=== PATIENT | male | born 1940 | race Hispanic/Latino ===

== ENCOUNTER 2021-09-16 21:55 | Inpatient (IN) | payer MEDICARE ==
[2021-09-16 22:45] LABS: Hemoglobin 15.7 g/dL (14.0-18.0); Mean Corpuscular HGB CONC 34.3 g/dL (32.0-36.0); Mean Corpuscular Hemoglobin 31.3 pg (27.0-31.0); Mean Corpuscular Volume 91.2 fL (78.0-98.0); Mean Platelet Volume 8.1 fL (7.4-10.4); Platelet Count 376 thou/uL (130-400); RBC Distribution Width 12.6 % (11.5-14.5); Red Blood Cell (RBC) Count 5.01 mill/uL (4.70-6.10); White Blood Cell (WBC) Count 27.7 thou/uL (4.8-10.8)
[2021-09-16 23:02] LABS: Band 10 % (5-11); MDiff Complete? YES; Monocytes 10 % (0-10); Neutrophil 80 % (42-75); Platelet Morphology Comment Appears Adequate; RBC Morphology Normal
[2021-09-16 23:12] LABS: Phosphorus 1.9 mg/dL (2.3-4.7)
[2021-09-16 23:20] LABS: ALT (SGPT) 188 U/L (8-55); AST (SGOT) 200 U/L (5-34); Albumin 3.2 g/dL (3.4-4.8); Alkaline Phosphatase 304 U/L (40-110); Anion Gap 22 mmol/L (10-20); BUN (Urea Nitrogen) 45 mg/dL (8.4-25.7); Bilirubin, Total 3.1 mg/dL (0.2-1.2); CK (CPK) 67 U/L (30-200); Calc. Creatinine Clearance 0 mL/min (70-130); Carbon Dioxide 14 mmol/L (23-31); Chloride 104 mmol/L (98-107); Globulin 4.2 g/dL (2.4-3.5); Glucose 361 mg/dL (83-110); Magnesium 1.8 mg/dL (1.6-2.6); Potassium 4.7 mmol/L (3.5-5.1); Protein, Total 7.4 g/dL (5.8-8.1); Sodium 135 mmol/L (136-145)
[2021-09-16 23:24] LABS: Bacteria/HPF 1+ HPF (None Seen); Bilirubin Negative (Negative); Blood, Urine 1+ (Negative); Clarity Turbid (Clear); Glucose, Urine (Dipstick) Greater than 1000 mg/dL (Negative); Ketone, Urine Negative (Negative); Leukocyte 500 Leu/uL (Negative); Nitrite Negative (Negative); Protein, Urine (Dipstick) 70 mg/dL (Neg-Trace); Specific Gravity, Urine 1.013 (1.002-1.036); Squamous Epithelial None Seen HPF (0-3); Urobilinogen 3 mg/dL (Less than 2); WBC/HPF Greater than 50 HPF (0-3); pH, Urine 5.5 (5.0-9.0)
[2021-09-16 23:26] LABS: SARS-CoV-2 NAA Rapid Test Not Detected (NotDetected)
[2021-09-16] MEDS ORDERED: Cefepime 2 GM VIAL ONE (23:42)
[2021-09-16] MEDS ORDERED: Vancomycin 1 GM/200 ML BAG ONE (23:52)
[2021-09-17 01:00] LABS: Lipase Greater than 16000 U/L (8-78)
[2021-09-17] MEDS ORDERED: Sodium Chloride 0.9% 1,000 ML IV SCH (01:30)
[2021-09-17 01:58] VITALS: BMI 21.4
[2021-09-17] MEDS ORDERED: Dextrose 5% in Water 1,000 ML IV PRN (02:33)
[2021-09-17 03:00] LABS: Lactic Acid 3.1 mmol/L (0.5-2.2)
[2021-09-17] MEDS: HumaLOG 300 UNITS/3 ML VIAL SC PRN (03:17)
[2021-09-17] MEDS ORDERED: Meperidine HCl/PF 25 MG/ML VIAL SLOW IVP PRN (06:49)
[2021-09-17 07:54] LABS: CRP (Inflammatory) 7.91 mg/dL (= or < 0.5); Cardiac Risk 4.6 (Less than 4.5)
[2021-09-17] MEDS ORDERED: Meropenem 1 GM in Sodium Chloride 0.9% 100 ML IVPB SCH ×2 (08:00→14:00)
[2021-09-17] MEDS ORDERED: FLU VACC QS2021-22(65YR UP)/PF 240 MCG/0.7 ML SYRINGE IM ONE (09:00)
[2021-09-17] MEDS: Sodium Chloride 0.9% 1,000 ML IV SCH ×3 (10:18→18:46)
[2021-09-17] MEDS: Lantus 1000 UNITS/10 ML VIAL SC SCH (10:19)
[2021-09-17] MEDS: Meropenem 500 MG in Sodium Chloride 0.9% 100 ML IVPB SCH (17:11)
[2021-09-17] MEDS: Dextrose 50% Abboject 50 ML SYRINGE SLOW IVP PRN (21:22)
[2021-09-18] MEDS: Lantus 1000 UNITS/10 ML VIAL SC SCH (01:02)
[2021-09-18] MEDS: Dextrose 5 % And 0.9 % NaCl 1,000 ML IV SCH ×2 (01:34→04:22)
[2021-09-18] MEDS: Dextrose 50% Abboject 50 ML SYRINGE SLOW IVP PRN (04:20)
[2021-09-18] MEDS: Meropenem 500 MG in Sodium Chloride 0.9% 100 ML IVPB SCH ×2 (05:52→16:15)
[2021-09-18 05:54] LABS: #Eosinphils 0.1 thou/uL (0.0-0.7); #Lymphocytes 0.9 thou/uL (1.20-3.40); #Monocytes 0.6 thou/uL (0.11-0.59); #Neutrophils 17.6 thou/uL (1.40-6.50); %Basophils 0.1 % (0.0-1.0); %Eosinophils 0.3 % (0.0-10.0); %Lymphocytes 4.4 % (21.0-51.0); %Monocytes 3.2 % (0.0-10.0); %Neutrophils 91.9 % (42.0-75.0); Hemoglobin 13.5 g/dL (14.0-18.0); Mean Corpuscular HGB CONC 34.4 g/dL (32.0-36.0); Mean Corpuscular Hemoglobin 31.8 pg (27.0-31.0); Mean Corpuscular Volume 92.2 fL (78.0-98.0); Mean Platelet Volume 7.9 fL (7.4-10.4); Platelet Count 247 thou/uL (130-400); RBC Distribution Width 12.8 % (11.5-14.5); Red Blood Cell (RBC) Count 4.26 mill/uL (4.70-6.10); White Blood Cell (WBC) Count 19.2 thou/uL (4.8-10.8)
[2021-09-18 06:26] LABS: ALT (SGPT) 130 U/L (8-55); AST (SGOT) 99 U/L (5-34); Albumin 2.7 g/dL (3.4-4.8); Alkaline Phosphatase 189 U/L (40-110); Anion Gap 8 mmol/L (10-20); BUN (Urea Nitrogen) 32 mg/dL (8.4-25.7); Bilirubin, Total 2.2 mg/dL (0.2-1.2); Calc. Creatinine Clearance 32 mL/min (70-130); Carbon Dioxide 16 mmol/L (23-31); Chloride 114 mmol/L (98-107); Globulin 3.5 g/dL (2.4-3.5); Glucose 147 mg/dL (83-110); Potassium 3.7 mmol/L (3.5-5.1); Protein, Total 6.2 g/dL (5.8-8.1); Sodium 134 mmol/L (136-145)
[2021-09-18] MEDS: Sodium Chloride 0.9% 1,000 ML IV SCH ×3 (08:06→21:35)
[2021-09-18] MEDS ORDERED: Fentanyl 100 MCG/2 ML VIAL ONE (08:19)
[2021-09-18] MEDS ORDERED: Ondansetron PF 4 MG/2 ML Vial ONE (09:00)
[2021-09-18] MEDS ORDERED: PHENYLEPHRINE-NS 100 MCG/ML 10 ML SYRINGE ONE (09:00)
[2021-09-18] MEDS ORDERED: Succinylcholine 200 MG/10 ml SYRINGE FS ONE (09:00)
[2021-09-18] MEDS ORDERED: PROPOFOL 200 MG/20 ML VIAL ONE (09:00)
[2021-09-18] MEDS ORDERED: Lidocaine 1% PF 5 ML VIAL ONE (09:00)
[2021-09-18] MEDS ORDERED: Dexamethasone 20 MG/5 ML VIAL ONE (09:00)
[2021-09-18] MEDS ORDERED: ePHEDrine 50 MG/ML VIAL ONE (09:00)
[2021-09-18] MEDS ORDERED: Dextrose 50% Abboject 50 ML SYRINGE ONE (09:03)
[2021-09-18] MEDS ORDERED: Indomethacin 50 MG SUPP ONE (09:09)
[2021-09-18] MEDS ORDERED: Iothalamate Meglumine 60% 50 ML VIAL FS ONE (09:10)
[2021-09-18] MEDS ORDERED: Promethazine HCl 25 MG/ML VIAL IM PRN (10:33)
[2021-09-18] MEDS ORDERED: Promethazine HCl 25 MG/ML VIAL IVPB PRN (10:33)
[2021-09-18] MEDS ORDERED: Ondansetron HCl/PF 4 MG/2 ML Vial IVP PRN (10:33)
[2021-09-18] MEDS ORDERED: Amlodipine 10 MG TAB PO SCH (15:00)
[2021-09-18] MEDS: Atorvastatin Calcium 20 MG TAB PO SCH (21:35)
[2021-09-18] MEDS: HumaLOG 300 UNITS/3 ML VIAL SC PRN (21:42)
[2021-09-19] MEDS: Sodium Chloride 0.9% 1,000 ML IV SCH ×3 (03:56→16:22)
[2021-09-19] MEDS: Meropenem 500 MG in Sodium Chloride 0.9% 100 ML IVPB SCH (03:56)
[2021-09-19 06:11] LABS: INR-International Normal Ratio 1.1; PTT 26.3 sec (22.9-36.1); Prothrombin Time 14.7 sec (12.0-14.7)
[2021-09-19 06:20] LABS: Band 2 % (5-11); Hemoglobin 13.3 g/dL (14.0-18.0); Hypochromia SLIGHT = 6-15 cells (100X) (0-5/hpf); Lymphocytes 4 % (21-51); MDiff Complete? YES; Mean Corpuscular HGB CONC 33.8 g/dL (32.0-36.0); Mean Corpuscular Hemoglobin 30.9 pg (27.0-31.0); Mean Corpuscular Volume 91.3 fL (78.0-98.0); Mean Platelet Volume 8.4 fL (7.4-10.4); Neutrophil 94 % (42-75); Platelet Count 250 thou/uL (130-400); Platelet Morphology Comment Appears Adequate; RBC Distribution Width 12.7 % (11.5-14.5); White Blood Cell (WBC) Count 18.6 thou/uL (4.8-10.8)
[2021-09-19 06:24] LABS: Phosphorus 2.1 mg/dL (2.3-4.7)
[2021-09-19 06:25] LABS: ALT (SGPT) 104 U/L (8-55); AST (SGOT) 45 U/L (5-34); Alkaline Phosphatase 201 U/L (40-110); Anion Gap 13 mmol/L (10-20); BUN (Urea Nitrogen) 32 mg/dL (8.4-25.7); Bilirubin, Total 1.7 mg/dL (0.2-1.2); Calc. Creatinine Clearance 35 mL/min (70-130); Calcium 8.4 mg/dL (7.8-10.44); Carbon Dioxide 19 mmol/L (23-31); Chloride 113 mmol/L (98-107); Globulin 3.4 g/dL (2.4-3.5); Glucose 187 mg/dL (83-110); Lipase 142 U/L (8-78); Magnesium 1.4 mg/dL (1.6-2.6); Potassium 3.7 mmol/L (3.5-5.1); Protein, Total 6.4 g/dL (5.8-8.1); Sodium 141 mmol/L (136-145)
[2021-09-19] MEDS ORDERED: Bupivacaine 0.25% HCL 30 ML VIAL ONE (06:39)
[2021-09-19] MEDS ORDERED: Lidocaine 1% w/Epinephrine 1:100K 20 ML VIAL ONE (06:39)
[2021-09-19] MEDS ORDERED: Famotidine/PF 20 mg/2ml Vial ONE (06:53)
[2021-09-19] MEDS ORDERED: Fentanyl 100 MCG/2 ML VIAL ONE (06:53)
[2021-09-19] MEDS ORDERED: Potassium Phosphate 30 MMOL, Magnesium Sulfate 4 GM in Sodium Chloride 0.9% 250 ML IVPB SCH (07:34)
[2021-09-19] MEDS ORDERED: Lidocaine 1% PF 5 ML VIAL ONE (07:38)
[2021-09-19] MEDS ORDERED: Glycopyrrolate 0.2 MG/ML 5 ML SYRINGE ONE (07:38)
[2021-09-19] MEDS ORDERED: PHENYLEPHRINE-NS 100 MCG/ML 10 ML SYRINGE ONE (07:38)
[2021-09-19] MEDS ORDERED: Ondansetron PF 4 MG/2 ML Vial ONE (07:38)
[2021-09-19] MEDS ORDERED: Rocuronium Bromide 10 MG/ML (10ML VIAL) ONE (07:38)
[2021-09-19] MEDS ORDERED: PROPOFOL 200 MG/20 ML VIAL ONE (07:38)
[2021-09-19] MEDS ORDERED: PACU-Morphine 4MG/ML VIAL SLOW IVP PRN (08:32)
[2021-09-19] MEDS ORDERED: Promethazine HCl 25 MG/ML VIAL IVPB PRN (08:32)
[2021-09-19] MEDS: Amlodipine 10 MG TAB PO SCH (11:05)
[2021-09-19] MEDS: HumaLOG 300 UNITS/3 ML VIAL SC PRN (11:05)
[2021-09-19] MEDS: Acetaminophen/Codeine 30-300mg Tablet PO SCH ×2 (12:01→18:26)
[2021-09-19] MEDS: Meropenem 1 GM in Sodium Chloride 0.9% 100 ML IVPB SCH (16:22)
[2021-09-19] MEDS: Atorvastatin Calcium 20 MG TAB PO SCH (22:43)
[2021-09-20] MEDS: Sodium Chloride 0.9% 1,000 ML IV SCH ×4 (00:32→23:40)
[2021-09-20] MEDS: Acetaminophen/Codeine 30-300mg Tablet PO SCH ×5 (00:32→23:29)
[2021-09-20] MEDS: Meropenem 1 GM in Sodium Chloride 0.9% 100 ML IVPB SCH (04:40)
[2021-09-20 06:55] LABS: Phosphorus 2.8 mg/dL (2.3-4.7)
[2021-09-20 06:57] LABS: ALT (SGPT) 102 U/L (8-55); AST (SGOT) 60 U/L (5-34); Albumin 2.5 g/dL (3.4-4.8); Alkaline Phosphatase 159 U/L (40-110); Anion Gap 14 mmol/L (10-20); BUN (Urea Nitrogen) 29 mg/dL (8.4-25.7); Bilirubin, Total 1.3 mg/dL (0.2-1.2); Calc. Creatinine Clearance 37 mL/min (70-130); Calcium 7.8 mg/dL (7.8-10.44); Carbon Dioxide 14 mmol/L (23-31); Chloride 119 mmol/L (98-107); Globulin 3.5 g/dL (2.4-3.5); Glucose 126 mg/dL (83-110); Magnesium 2.2 mg/dL (1.6-2.6); Potassium 4.9 mmol/L (3.5-5.1); Sodium 142 mmol/L (136-145)
[2021-09-20 08:47] LABS: #Monocytes 0.7 thou/uL (0.11-0.59); #Neutrophils 15.2 thou/uL (1.40-6.50); %Basophils 0.2 % (0.0-1.0); %Eosinophils 0.1 % (0.0-10.0); %Lymphocytes 5.6 % (21.0-51.0); %Monocytes 4.4 % (0.0-10.0); %Neutrophils 89.8 % (42.0-75.0); Hemoglobin 12.9 g/dL (14.0-18.0); Mean Corpuscular Hemoglobin 30.4 pg (27.0-31.0); Mean Platelet Volume 8.4 fL (7.4-10.4); Platelet Count 258 thou/uL (130-400); RBC Distribution Width 12.8 % (11.5-14.5); Red Blood Cell (RBC) Count 4.25 mill/uL (4.70-6.10); White Blood Cell (WBC) Count 16.9 thou/uL (4.8-10.8)
[2021-09-20] MEDS: Acetaminophen/Codeine 30-300mg Tablet PO PRN (09:22)
[2021-09-20] MEDS: Amlodipine 10 MG TAB PO SCH (09:22)
[2021-09-20 09:40] LABS: Band 8 % (5-11); Lymphocytes 7 % (21-51); MDiff Complete? YES; Monocytes 5 % (0-10); Neutrophil 80 % (42-75); Platelet Morphology Comment Appears Adequate; RBC Morphology Normal
[2021-09-20] MEDS: AMPicillin 1 GM in Sodium Chloride 0.9% 100 ML IVPB SCH ×2 (18:19→23:40)
[2021-09-20] MEDS: Atorvastatin Calcium 20 MG TAB PO SCH (21:46)
[2021-09-21] MEDS ORDERED: Lorazepam 2 MG/ML VIAL SLOW IVP PRN (03:53)
[2021-09-21] MEDS ORDERED: VANCOMYCIN 1.25 GM/250 ML BAG 1.25 GM in Premix Bag 1 BAG IVPB SCH (04:30)
[2021-09-21] MEDS: Acetaminophen/Codeine 30-300mg Tablet PO SCH ×4 (04:49→20:16)
[2021-09-21] MEDS: Dextrose 5 % And 0.9 % NaCl 1,000 ML IV SCH ×2 (04:59→16:13)
[2021-09-21] MEDS: Ampicillin/Sulbactam 3 GM in Sodium Chloride 0.9% 100 ML IVPB SCH ×4 (05:01→23:27)
[2021-09-21 05:59] LABS: Hemoglobin 13.1 g/dL (14.0-18.0); Mean Corpuscular HGB CONC 33.2 g/dL (32.0-36.0); Mean Corpuscular Hemoglobin 30.5 pg (27.0-31.0); Platelet Count 239 thou/uL (130-400); RBC Distribution Width 12.8 % (11.5-14.5); Red Blood Cell (RBC) Count 4.29 mill/uL (4.70-6.10); White Blood Cell (WBC) Count 17.9 thou/uL (4.8-10.8)
[2021-09-21 06:14] LABS: ALT (SGPT) 73 U/L (8-55); AST (SGOT) 28 U/L (5-34); Albumin 2.5 g/dL (3.4-4.8); Alkaline Phosphatase 158 U/L (40-110); Anion Gap 12 mmol/L (10-20); BUN (Urea Nitrogen) 26 mg/dL (8.4-25.7); Bilirubin, Total 1.5 mg/dL (0.2-1.2); Calc. Creatinine Clearance 41 mL/min (70-130); Calcium 7.8 mg/dL (7.8-10.44); Carbon Dioxide 20 mmol/L (23-31); Chloride 118 mmol/L (98-107); Globulin 3.1 g/dL (2.4-3.5); Glucose 85 mg/dL (83-110); Potassium 3.6 mmol/L (3.5-5.1); Protein, Total 5.6 g/dL (5.8-8.1); Sodium 146 mmol/L (136-145)
[2021-09-21 07:51] LABS: Band 6 % (5-11); Lymphocytes 10 % (21-51); MDiff Complete? YES; Monocytes 4 % (0-10); Neutrophil 80 % (42-75); Platelet Morphology Comment Appears Adequate; RBC Morphology Normal
[2021-09-21] MEDS: Amlodipine 10 MG TAB PO SCH (10:41)
[2021-09-21] MEDS: Atorvastatin Calcium 20 MG TAB PO SCH (20:16)
[2021-09-22] MEDS: Dextrose 5 % And 0.9 % NaCl 1,000 ML IV SCH ×2 (03:45→11:32)
[2021-09-22] MEDS: Vancomycin 1 GM in Premix Bag 1 BAG IVPB SCH (03:47)
[2021-09-22] MEDS: HumaLOG 300 UNITS/3 ML VIAL SC PRN ×2 (04:59→21:20)
[2021-09-22] MEDS: Acetaminophen/Codeine 30-300mg Tablet PO SCH ×4 (05:03→23:16)
[2021-09-22] MEDS: Ampicillin/Sulbactam 3 GM in Sodium Chloride 0.9% 100 ML IVPB SCH ×3 (05:46→18:26)
[2021-09-22] MEDS: Amlodipine 10 MG TAB PO SCH (08:34)
[2021-09-22] MEDS ORDERED: Dextrose 5 % And 0.9 % NaCl 1,000 ML IV SCH (18:30)
[2021-09-22] MEDS: Enoxaparin Sodium 30 MG/0.3 ML SYRINGE SC SCH (20:37)
[2021-09-22] MEDS: Atorvastatin Calcium 20 MG TAB PO SCH (20:37)
[2021-09-23] MEDS: Ampicillin/Sulbactam 3 GM in Sodium Chloride 0.9% 100 ML IVPB SCH ×5 (00:03→23:45)
[2021-09-23 03:14] LABS: #Eosinphils 0.6 thou/uL (0.0-0.7); #Lymphocytes 1.3 thou/uL (1.20-3.40); #Monocytes 0.8 thou/uL (0.11-0.59); #Neutrophils 12.4 thou/uL (1.40-6.50); %Basophils 0.2 % (0.0-1.0); %Eosinophils 3.7 % (0.0-10.0); %Lymphocytes 8.4 % (21.0-51.0); %Monocytes 5.5 % (0.0-10.0); %Neutrophils 82.2 % (42.0-75.0); Hemoglobin 13.6 g/dL (14.0-18.0); Mean Corpuscular HGB CONC 34.6 g/dL (32.0-36.0); Mean Corpuscular Hemoglobin 31.6 pg (27.0-31.0); Mean Corpuscular Volume 91.5 fL (78.0-98.0); Mean Platelet Volume 8.6 fL (7.4-10.4); Platelet Count 239 thou/uL (130-400); RBC Distribution Width 12.5 % (11.5-14.5); White Blood Cell (WBC) Count 15.1 thou/uL (4.8-10.8)
[2021-09-23 04:07] LABS: Anion Gap 13 mmol/L (10-20); BUN (Urea Nitrogen) 22 mg/dL (8.4-25.7); Calc. Creatinine Clearance 39 mL/min (70-130); Calcium 8.4 mg/dL (7.8-10.44); Carbon Dioxide 19 mmol/L (23-31); Chloride 122 mmol/L (98-107); Glucose 195 mg/dL (83-110); Potassium 3.2 mmol/L (3.5-5.1); Sodium 151 mmol/L (136-145)
[2021-09-23] MEDS: Vancomycin 1 GM in Premix Bag 1 BAG IVPB SCH (04:21)
[2021-09-23] MEDS: Acetaminophen/Codeine 30-300mg Tablet PO SCH ×3 (05:09→17:15)
[2021-09-23] MEDS: Amlodipine 10 MG TAB PO SCH (09:21)
[2021-09-23] MEDS: Clopidogrel Bisulfate 75 MG TAB PO SCH (09:22)
[2021-09-23] MEDS: Potassium Chloride 10 MEQ in Dextrose 5% in Water 1,000 ML IV SCH ×2 (09:47→17:36)
[2021-09-23] MEDS: HumaLOG 300 UNITS/3 ML VIAL SC PRN ×2 (19:14→22:08)
[2021-09-23] MEDS: Atorvastatin Calcium 20 MG TAB PO SCH (20:20)
[2021-09-23] MEDS: Enoxaparin Sodium 30 MG/0.3 ML SYRINGE SC SCH (20:20)
[2021-09-24] MEDS: Acetaminophen/Codeine 30-300mg Tablet PO SCH ×4 (00:02→17:43)
[2021-09-24] MEDS: Acetaminophen/Codeine 30-300mg Tablet PO PRN (01:12)
[2021-09-24] MEDS: Vancomycin 1 GM in Premix Bag 1 BAG IVPB SCH (04:09)
[2021-09-24 04:41] LABS: Hemoglobin 13.4 g/dL (14.0-18.0); Mean Corpuscular HGB CONC 32.6 g/dL (32.0-36.0); Mean Corpuscular Hemoglobin 30.9 pg (27.0-31.0); Mean Corpuscular Volume 94.9 fL (78.0-98.0); Mean Platelet Volume 8.4 fL (7.4-10.4); Platelet Count 243 thou/uL (130-400); RBC Distribution Width 12.7 % (11.5-14.5); Red Blood Cell (RBC) Count 4.33 mill/uL (4.70-6.10); White Blood Cell (WBC) Count 22.7 thou/uL (4.8-10.8)
[2021-09-24 04:57] LABS: Anion Gap 13 mmol/L (10-20); BUN (Urea Nitrogen) 25 mg/dL (8.4-25.7); Calc. Creatinine Clearance 35 mL/min (70-130); Calcium 7.9 mg/dL (7.8-10.44); Carbon Dioxide 21 mmol/L (23-31); Chloride 118 mmol/L (98-107); Glucose 242 mg/dL (83-110); Potassium 3.2 mmol/L (3.5-5.1); Sodium 149 mmol/L (136-145)
[2021-09-24] MEDS: HumaLOG 300 UNITS/3 ML VIAL SC PRN ×2 (05:18→20:49)
[2021-09-24 05:33] LABS: Band 34 % (5-11); Lymphocytes 5 % (21-51); MDiff Complete? YES; Monocytes 2 % (0-10); Neutrophil 57 % (42-75)
[2021-09-24] MEDS: Ampicillin/Sulbactam 3 GM in Sodium Chloride 0.9% 100 ML IVPB SCH ×3 (07:11→18:14)
[2021-09-24] MEDS ORDERED: Potassium Chloride 40 MEQ in Premix Bag 1 BAG IVPB SCH (08:00)
[2021-09-24 08:58] LABS: ALT (SGPT) 63 U/L (8-55); AST (SGOT) 34 U/L (5-34); Albumin 2.5 g/dL (3.4-4.8); Alkaline Phosphatase 165 U/L (40-110); Bilirubin, Direct 0.7 mg/dL (0.1-0.3); Bilirubin, Total 1.2 mg/dL (0.2-1.2)
[2021-09-24] MEDS: Amlodipine 10 MG TAB PO SCH (10:38)
[2021-09-24] MEDS: Clopidogrel Bisulfate 75 MG TAB PO SCH (10:38)
[2021-09-24] MEDS: Potassium Chloride 10 MEQ in Dextrose 5% in Water 1,000 ML IV SCH ×2 (11:31→16:41)
[2021-09-24 11:40] LABS: SARS-CoV-2 PCR by NAA Not Detected (NotDetected)
[2021-09-24] MEDS: Enoxaparin Sodium 30 MG/0.3 ML SYRINGE SC SCH (20:51)
[2021-09-24] MEDS: Atorvastatin Calcium 20 MG TAB PO SCH (20:51)
[2021-09-25] MEDS: Potassium Chloride 10 MEQ in Dextrose 5% in Water 1,000 ML IV SCH ×3 (00:05→23:22)
[2021-09-25] MEDS: Ampicillin/Sulbactam 3 GM in Sodium Chloride 0.9% 100 ML IVPB SCH ×5 (00:54→23:46)
[2021-09-25] MEDS: Acetaminophen/Codeine 30-300mg Tablet PO SCH ×5 (01:37→23:23)
[2021-09-25] MEDS: HumaLOG 300 UNITS/3 ML VIAL SC PRN ×5 (02:07→21:34)
[2021-09-25 04:51] LABS: Vancomycin, Trough 18.2 ug/mL
[2021-09-25 04:53] LABS: Anion Gap 10 mmol/L (10-20); BUN (Urea Nitrogen) 23 mg/dL (8.4-25.7); Calc. Creatinine Clearance 32 mL/min (70-130); Calcium 8.4 mg/dL (7.8-10.44); Carbon Dioxide 23 mmol/L (23-31); Chloride 116 mmol/L (98-107); Glucose 254 mg/dL (83-110); Potassium 3.4 mmol/L (3.5-5.1); Sodium 146 mmol/L (136-145)
[2021-09-25 04:54] LABS: Hemoglobin 13.3 g/dL (14.0-18.0); Mean Corpuscular HGB CONC 32.6 g/dL (32.0-36.0); Mean Corpuscular Volume 92.1 fL (78.0-98.0); Mean Platelet Volume 8.8 fL (7.4-10.4); Platelet Count 250 thou/uL (130-400); RBC Distribution Width 12.7 % (11.5-14.5); Red Blood Cell (RBC) Count 4.44 mill/uL (4.70-6.10); White Blood Cell (WBC) Count 26.4 thou/uL (4.8-10.8)
[2021-09-25] MEDS: Vancomycin 1 GM in Premix Bag 1 BAG IVPB SCH (05:07)
[2021-09-25 05:36] LABS: Band 14 % (5-11); Eosinophils 2 % (0-10); Lymphocytes 8 % (21-51); MDiff Complete? YES; Monocytes 3 % (0-10); Neutrophil 73 % (42-75)
[2021-09-25] MEDS: Clopidogrel Bisulfate 75 MG TAB PO SCH (10:43)
[2021-09-25] MEDS: Amlodipine 10 MG TAB PO SCH (10:44)
[2021-09-25] MEDS: Saccharomyces boulardii 250 MG CAP PO SCH (10:44)
[2021-09-25] MEDS: Enoxaparin Sodium 30 MG/0.3 ML SYRINGE SC SCH (21:34)
[2021-09-25] MEDS: Atorvastatin Calcium 20 MG TAB PO SCH (23:22)
[2021-09-26] MEDS: HumaLOG 300 UNITS/3 ML VIAL SC PRN ×5 (01:28→20:48)
[2021-09-26] MEDS: Potassium Chloride 10 MEQ in Dextrose 5% in Water 1,000 ML IV SCH ×3 (02:38→19:20)
[2021-09-26] MEDS: Vancomycin 1 GM in Premix Bag 1 BAG IVPB SCH (04:02)
[2021-09-26 05:49] LABS: #Basophils 0.1 thou/uL (0.0-0.2); #Eosinphils 0.7 thou/uL (0.0-0.7); #Lymphocytes 1.5 thou/uL (1.20-3.40); #Monocytes 0.7 thou/uL (0.11-0.59); #Neutrophils 20.2 thou/uL (1.40-6.50); %Basophils 0.2 % (0.0-1.0); %Eosinophils 2.8 % (0.0-10.0); %Lymphocytes 6.4 % (21.0-51.0); %Monocytes 3.1 % (0.0-10.0); %Neutrophils 87.4 % (42.0-75.0); Hemoglobin 12.8 g/dL (14.0-18.0); Mean Corpuscular HGB CONC 33.8 g/dL (32.0-36.0); Mean Corpuscular Hemoglobin 31.2 pg (27.0-31.0); Mean Corpuscular Volume 92.1 fL (78.0-98.0); Mean Platelet Volume 8.5 fL (7.4-10.4); Platelet Count 237 thou/uL (130-400); RBC Distribution Width 12.7 % (11.5-14.5); Red Blood Cell (RBC) Count 4.12 mill/uL (4.70-6.10); White Blood Cell (WBC) Count 23.1 thou/uL (4.8-10.8)
[2021-09-26 06:04] LABS: Anion Gap 11 mmol/L (10-20); BUN (Urea Nitrogen) 21 mg/dL (8.4-25.7); Calc. Creatinine Clearance 32 mL/min (70-130); Calcium 8.2 mg/dL (7.8-10.44); Carbon Dioxide 23 mmol/L (23-31); Chloride 115 mmol/L (98-107); Glucose 261 mg/dL (83-110); Potassium 3.3 mmol/L (3.5-5.1); Sodium 146 mmol/L (136-145)
[2021-09-26] MEDS: Acetaminophen/Codeine 30-300mg Tablet PO SCH ×4 (06:10→23:11)
[2021-09-26] MEDS: Ampicillin/Sulbactam 3 GM in Sodium Chloride 0.9% 100 ML IVPB SCH ×4 (06:12→23:23)
[2021-09-26] MEDS ORDERED: Potassium Chloride 20 MEQ in Premix Bag 1 BAG IVPB SCH (09:00)
[2021-09-26] MEDS: Saccharomyces boulardii 250 MG CAP PO SCH (11:09)
[2021-09-26] MEDS: Clopidogrel Bisulfate 75 MG TAB PO SCH (11:09)
[2021-09-26] MEDS: Amlodipine 10 MG TAB PO SCH (11:09)
[2021-09-26] MEDS: Enoxaparin Sodium 30 MG/0.3 ML SYRINGE SC SCH (20:48)
[2021-09-26] MEDS: Atorvastatin Calcium 20 MG TAB PO SCH (20:48)
[2021-09-27] MEDS: HumaLOG 300 UNITS/3 ML VIAL SC PRN ×5 (00:01→20:15)
[2021-09-27] MEDS: Lactated Ringer's 1,000 ML IV SCH ×3 (00:19→22:34)
[2021-09-27 03:31] LABS: #Eosinphils 0.6 thou/uL (0.0-0.7); #Lymphocytes 1.2 thou/uL (1.20-3.40); %Basophils 0.2 % (0.0-1.0); %Eosinophils 3.5 % (0.0-10.0); %Lymphocytes 6.9 % (21.0-51.0); %Monocytes 5.4 % (0.0-10.0); Hemoglobin 12.1 g/dL (14.0-18.0); Mean Corpuscular HGB CONC 31.5 g/dL (32.0-36.0); Mean Corpuscular Hemoglobin 28.8 pg (27.0-31.0); Mean Corpuscular Volume 91.5 fL (78.0-98.0); Mean Platelet Volume 8.6 fL (7.4-10.4); Platelet Count 240 thou/uL (130-400); RBC Distribution Width 12.4 % (11.5-14.5); Red Blood Cell (RBC) Count 4.19 mill/uL (4.70-6.10); White Blood Cell (WBC) Count 17.8 thou/uL (4.8-10.8)
[2021-09-27] MEDS: Vancomycin 1 GM in Premix Bag 1 BAG IVPB SCH (03:36)
[2021-09-27 04:05] LABS: Anion Gap 11 mmol/L (10-20); BUN (Urea Nitrogen) 22 mg/dL (8.4-25.7); Calc. Creatinine Clearance 34 mL/min (70-130); Carbon Dioxide 22 mmol/L (23-31); Chloride 112 mmol/L (98-107); Glucose 192 mg/dL (83-110); Potassium 3.2 mmol/L (3.5-5.1); Sodium 142 mmol/L (136-145); Vancomycin, Trough 21.7 ug/mL
[2021-09-27] MEDS: Acetaminophen/Codeine 30-300mg Tablet PO SCH ×4 (05:16→23:54)
[2021-09-27] MEDS: Ampicillin/Sulbactam 3 GM in Sodium Chloride 0.9% 100 ML IVPB SCH ×4 (06:09→23:54)
[2021-09-27] MEDS: Clopidogrel Bisulfate 75 MG TAB PO SCH (08:47)
[2021-09-27] MEDS: Amlodipine 10 MG TAB PO SCH (08:47)
[2021-09-27] MEDS: Saccharomyces boulardii 250 MG CAP PO SCH (08:47)
[2021-09-27] MEDS: Potassium Chloride 20 MEQ in Premix Bag 1 BAG IVPB SCH ×2 (08:47→10:48)
[2021-09-27] MEDS: Glimepiride 1 MG TAB PO SCH (08:47)
[2021-09-27] MEDS: Guaifenesin DM 100-10/5 ML UDCUP PO PRN (18:18)
[2021-09-27] MEDS: Enoxaparin Sodium 30 MG/0.3 ML SYRINGE SC SCH (20:15)
[2021-09-27] MEDS: Atorvastatin Calcium 20 MG TAB PO SCH (20:15)
[2021-09-28] MEDS ORDERED: Vancomycin HCl 750 MG in Sodium Chloride 0.9% 250 ML 250 ML IVPB SCH (04:00)
[2021-09-28 05:32] LABS: #Basophils 0.1 thou/uL (0.0-0.2); #Eosinphils 0.6 thou/uL (0.0-0.7); #Lymphocytes 1.5 thou/uL (1.20-3.40); #Monocytes 0.9 thou/uL (0.11-0.59); #Neutrophils 13.3 thou/uL (1.40-6.50); %Basophils 0.4 % (0.0-1.0); %Eosinophils 3.8 % (0.0-10.0); %Lymphocytes 9.4 % (21.0-51.0); %Monocytes 5.3 % (0.0-10.0); %Neutrophils 81.1 % (42.0-75.0); Hemoglobin 11.9 g/dL (14.0-18.0); Mean Corpuscular HGB CONC 31.6 g/dL (32.0-36.0); Mean Corpuscular Volume 91.7 fL (78.0-98.0); Mean Platelet Volume 8.6 fL (7.4-10.4); Platelet Count 263 thou/uL (130-400); RBC Distribution Width 12.5 % (11.5-14.5); Red Blood Cell (RBC) Count 4.09 mill/uL (4.70-6.10); White Blood Cell (WBC) Count 16.4 thou/uL (4.8-10.8)
[2021-09-28] MEDS: Acetaminophen/Codeine 30-300mg Tablet PO SCH ×4 (05:42→23:37)
[2021-09-28] MEDS: Ampicillin/Sulbactam 3 GM in Sodium Chloride 0.9% 100 ML IVPB SCH ×4 (05:42→23:36)
[2021-09-28 05:52] LABS: Anion Gap 14 mmol/L (10-20); BUN (Urea Nitrogen) 21 mg/dL (8.4-25.7); Calc. Creatinine Clearance 35 mL/min (70-130); Carbon Dioxide 16 mmol/L (23-31); Chloride 114 mmol/L (98-107); Glucose 173 mg/dL (83-110); Potassium 3.8 mmol/L (3.5-5.1); Sodium 140 mmol/L (136-145)
[2021-09-28] MEDS: Saccharomyces boulardii 250 MG CAP PO SCH (09:02)
[2021-09-28] MEDS: Glimepiride 1 MG TAB PO SCH (09:02)
[2021-09-28] MEDS: Clopidogrel Bisulfate 75 MG TAB PO SCH (09:03)
[2021-09-28] MEDS: Amlodipine 10 MG TAB PO SCH (09:03)
[2021-09-28] MEDS: HumaLOG 300 UNITS/3 ML VIAL SC PRN ×2 (11:23→17:58)
[2021-09-28] MEDS: Guaifenesin DM 100-10/5 ML UDCUP PO PRN (13:08)
[2021-09-28] MEDS: Lactated Ringer's 1,000 ML IV SCH (14:20)
[2021-09-28] MEDS: Acetaminophen/Codeine 30-300mg Tablet PO PRN (14:20)
[2021-09-28] MEDS: Atorvastatin Calcium 20 MG TAB PO SCH (21:33)
[2021-09-28] MEDS: Enoxaparin Sodium 30 MG/0.3 ML SYRINGE SC SCH (21:33)
[2021-09-29] MEDS: Acetaminophen/Codeine 30-300mg Tablet PO SCH ×2 (05:37→10:24)
[2021-09-29] MEDS: Ampicillin/Sulbactam 3 GM in Sodium Chloride 0.9% 100 ML IVPB SCH ×4 (05:40→23:40)
[2021-09-29] MEDS: Amlodipine 10 MG TAB PO SCH (08:30)
[2021-09-29] MEDS: Clopidogrel Bisulfate 75 MG TAB PO SCH (08:30)
[2021-09-29] MEDS: Saccharomyces boulardii 250 MG CAP PO SCH (08:30)
[2021-09-29] MEDS: Glimepiride 1 MG TAB PO SCH (08:30)
[2021-09-29] MEDS: HumaLOG 300 UNITS/3 ML VIAL SC PRN ×2 (08:33→11:30)
[2021-09-29] MEDS: Lactated Ringer's 1,000 ML IV SCH (10:15)
[2021-09-29] MEDS: Enoxaparin Sodium 30 MG/0.3 ML SYRINGE SC SCH (20:22)
[2021-09-29] MEDS: Atorvastatin Calcium 20 MG TAB PO SCH (20:22)
[2021-09-30 05:38] LABS: #Basophils 0.1 thou/uL (0.0-0.2); #Eosinphils 0.7 thou/uL (0.0-0.7); #Lymphocytes 1.6 thou/uL (1.20-3.40); #Monocytes 0.9 thou/uL (0.11-0.59); #Neutrophils 8.8 thou/uL (1.40-6.50); %Basophils 0.9 % (0.0-1.0); %Eosinophils 5.5 % (0.0-10.0); %Lymphocytes 13.3 % (21.0-51.0); %Monocytes 7.5 % (0.0-10.0); %Neutrophils 72.8 % (42.0-75.0); Hemoglobin 11.4 g/dL (14.0-18.0); Mean Corpuscular HGB CONC 34.1 g/dL (32.0-36.0); Mean Corpuscular Hemoglobin 31.1 pg (27.0-31.0); Mean Corpuscular Volume 91.3 fL (78.0-98.0); Mean Platelet Volume 8.6 fL (7.4-10.4); Platelet Count 258 thou/uL (130-400); RBC Distribution Width 12.6 % (11.5-14.5); Red Blood Cell (RBC) Count 3.67 mill/uL (4.70-6.10)
[2021-09-30] MEDS: Ampicillin/Sulbactam 3 GM in Sodium Chloride 0.9% 100 ML IVPB SCH ×4 (05:46→23:14)
[2021-09-30 06:07] LABS: ALT (SGPT) 81 U/L (8-55); AST (SGOT) 49 U/L (5-34); Albumin 2.1 g/dL (3.4-4.8); Alkaline Phosphatase 173 U/L (40-110); Anion Gap 12 mmol/L (10-20); BUN (Urea Nitrogen) 16 mg/dL (8.4-25.7); Bilirubin, Total 0.6 mg/dL (0.2-1.2); Calc. Creatinine Clearance 42 mL/min (70-130); Calcium 7.6 mg/dL (7.8-10.44); Carbon Dioxide 20 mmol/L (23-31); Chloride 110 mmol/L (98-107); Globulin 3.1 g/dL (2.4-3.5); Glucose 112 mg/dL (83-110); Potassium 3.6 mmol/L (3.5-5.1); Protein, Total 5.2 g/dL (5.8-8.1); Sodium 138 mmol/L (136-145)
[2021-09-30] MEDS: Glimepiride 1 MG TAB PO SCH (09:27)
[2021-09-30] MEDS: Saccharomyces boulardii 250 MG CAP PO SCH (09:28)
[2021-09-30] MEDS: Clopidogrel Bisulfate 75 MG TAB PO SCH (09:28)
[2021-09-30] MEDS: Amlodipine 10 MG TAB PO SCH (09:28)
[2021-09-30] MEDS: Lactated Ringer's 1,000 ML IV SCH ×3 (10:57→16:30)
[2021-09-30] MEDS: HumaLOG 300 UNITS/3 ML VIAL SC PRN (12:24)
[2021-09-30] MEDS: Enoxaparin Sodium 30 MG/0.3 ML SYRINGE SC SCH (20:59)
[2021-09-30] MEDS: Atorvastatin Calcium 20 MG TAB PO SCH (20:59)
[2021-10-01] MEDS: Ampicillin/Sulbactam 3 GM in Sodium Chloride 0.9% 100 ML IVPB SCH ×3 (05:12→18:58)
[2021-10-01] MEDS: Lactated Ringer's 1,000 ML IV SCH ×2 (05:14→18:58)
[2021-10-01 06:11] LABS: #Basophils 0.1 thou/uL (0.0-0.2); #Eosinphils 0.6 thou/uL (0.0-0.7); #Lymphocytes 1.8 thou/uL (1.20-3.40); #Monocytes 0.7 thou/uL (0.11-0.59); #Neutrophils 7.8 thou/uL (1.40-6.50); %Basophils 0.9 % (0.0-1.0); %Eosinophils 5.1 % (0.0-10.0); %Monocytes 6.6 % (0.0-10.0); %Neutrophils 71.4 % (42.0-75.0); Hemoglobin 12.4 g/dL (14.0-18.0); Mean Corpuscular HGB CONC 33.3 g/dL (32.0-36.0); Mean Corpuscular Hemoglobin 30.9 pg (27.0-31.0); Mean Corpuscular Volume 92.9 fL (78.0-98.0); Mean Platelet Volume 8.3 fL (7.4-10.4); Platelet Count 268 thou/uL (130-400); RBC Distribution Width 12.8 % (11.5-14.5); Red Blood Cell (RBC) Count 4.02 mill/uL (4.70-6.10); White Blood Cell (WBC) Count 10.9 thou/uL (4.8-10.8)
[2021-10-01 06:32] LABS: Anion Gap 10 mmol/L (10-20); BUN (Urea Nitrogen) 17 mg/dL (8.4-25.7); Calc. Creatinine Clearance 39 mL/min (70-130); Calcium 7.5 mg/dL (7.8-10.44); Carbon Dioxide 22 mmol/L (23-31); Chloride 110 mmol/L (98-107); Glucose 134 mg/dL (83-110); Potassium 3.6 mmol/L (3.5-5.1); Sodium 138 mmol/L (136-145)
[2021-10-01] MEDS: Glimepiride 1 MG TAB PO SCH (08:23)
[2021-10-01] MEDS: Saccharomyces boulardii 250 MG CAP PO SCH (08:23)
[2021-10-01] MEDS: Amlodipine 10 MG TAB PO SCH (08:23)
[2021-10-01] MEDS: Clopidogrel Bisulfate 75 MG TAB PO SCH (08:23)
[2021-10-01 16:35] VITALS: BP 128/67; TEMP 98.1
[2021-10-01] MEDS: HumaLOG 300 UNITS/3 ML VIAL SC PRN (18:42)
== END 2021-10-01 19:51 | disposition home health service (06) | DRG 853 ==
LOC: ERS 21:55 → SURG A 09-17 00:09
PROVIDERS: ADMIT Internal Medicine; ATTEND Hospitalist
PROC: 0FC98ZZ Extirpation of Matter from Common Bile Duct, Via Natural or Artificial Opening Endoscopic (ICD-10-PCS; 2021-09-18)
PROC: BF141ZZ Fluoroscopy of Gallbladder, Bile Ducts and Pancreatic Ducts using Low Osmolar Contrast (ICD-10-PCS; 2021-09-18)
PROC: 0FT44ZZ Resection of Gallbladder, Percutaneous Endoscopic Approach (ICD-10-PCS; principal; 2021-09-19)
DX: A41.81 Sepsis due to Enterococcus (principal); Z20.822 Contact with and (suspected) exposure to COVID-19; K85.10 Biliary acute pancreatitis without necrosis or infection; J69.0 Pneumonitis due to inhalation of food and vomit; N17.9 Acute kidney failure, unspecified; K80.63 Calculus of gallbladder and bile duct with acute cholecystitis with obstruction; I69.354 Hemiplegia and hemiparesis following cerebral infarction affecting left non-dominant side; E87.0 Hyperosmolality and hypernatremia; E78.5 Hyperlipidemia, unspecified; E78.00 Pure hypercholesterolemia, unspecified; I10 Essential (primary) hypertension; R13.10 Dysphagia, unspecified; E11.65 Type 2 diabetes mellitus with hyperglycemia; E87.6 Hypokalemia; E87.5 Hyperkalemia; E11.649 Type 2 diabetes mellitus with hypoglycemia without coma; I69.391 Dysphagia following cerebral infarction; Z87.891 Personal history of nicotine dependence; Z98.49 Cataract extraction status, unspecified eye; Z79.01 Long term (current) use of anticoagulants; Z79.02 Long term (current) use of antithrombotics/antiplatelets
CPT/HCPCS: 36415; 36416; 51701; 70450; 71045; 74018; 74176; 74230; 74330; 76705; 80048; 80053; 80061; 80076; 80202; 81003; 81015; 82010; 82140; 82550; 83605; 83690; 83735; 83880; 84100; 84443; 84484; 85025; 85610; 85730; 86140; 86301; 87040; 87077; 87149; 87186; 88304; 93005; 93306; 96365; 96367; C1713; J0290; J0295; J0692; J1100; J1610; J1650; J1815; J2185; J2405; J2704; J3010; J3370; J3475; J3480; J3490; J7030; J7042; J7050; J7070; J7120; Q9961-U8; S0020; S0028; U0002; U0003; U0005

== ENCOUNTER 2021-12-03 12:38 | Outpatient (CLI) | payer MEDICARE ==
[2021-12-04 07:55] LABS: SARS-CoV-2 PCR by NAA Not Detected (NotDetected)
== END 2021-12-03 12:39 | disposition home or self-care (01) ==
LOC: LABBT 12:38
PROVIDERS: ATTEND Ophthalmology Retina Specialist
DX: Z01.812 Encounter for preprocedural laboratory examination (principal); H43.12 Vitreous hemorrhage, left eye; Z20.822 Contact with and (suspected) exposure to COVID-19
CPT/HCPCS: U0003; U0005

== ENCOUNTER 2021-12-06 06:13 | Day surgery (SDC) | payer MEDICARE ==
[2021-11-30 12:01] VITALS: BMI 24.2
[~2021-12-06 06:13] MED LIST: EPINEPHrine 0.3 MG, Dextrose 50% 3 ML in Ophthalmic Irrigation Solution 500 ML IRR SCH
[2021-12-06] MEDS ORDERED: Phenylephrine 2.5% Ophth Soln 5 ML BOT ONE (06:23)
[2021-12-06] MEDS ORDERED: Cyclopentolate 1% Opth Drop 2 ML BOT ONE (06:23)
[2021-12-06] MEDS ORDERED: Fentanyl 250 MCG/5 ML VIAL ONE (06:27)
[2021-12-06] MEDS ORDERED: PROPOFOL 20 ML ONE (06:27)
[2021-12-06] MEDS ORDERED: Triamcinolone 40 MG/ML VIAL ONE (07:10)
[2021-12-06] MEDS ORDERED: Lidocaine 1% PF 5 ML VIAL ONE (07:10)
[2021-12-06] MEDS ORDERED: Dextrose 50% Abboject 50 ML SYRINGE ONE (07:10)
[2021-12-06] MEDS ORDERED: Maxitrol 0.1% Opth Oint 3.5 GM TUBE ONE (07:10)
[2021-12-06] MEDS ORDERED: Bupivacaine PF 0.75% SDV 10 ML ONE (07:10)
[2021-12-06] MEDS ORDERED: Lidocaine 4% PF 5 ML AMP ONE (07:10)
[2021-12-06] MEDS ORDERED: CEFAZOLIN 1 GM VIAL ONE (07:10)
== END 2021-12-06 08:43 | disposition home or self-care (01) ==
LOC: SDC 06:13
PROVIDERS: ATTEND Ophthalmology Retina Specialist
PROC: 08T53ZZ Resection of Left Vitreous, Percutaneous Approach (ICD-10-PCS; principal; 2021-12-06)
PROC: 08QF3ZZ Repair Left Retina, Percutaneous Approach (ICD-10-PCS; 2021-12-06)
PROC: 08NF3ZZ Release Left Retina, Percutaneous Approach (ICD-10-PCS; 2021-12-06)
DX: H43.12 Vitreous hemorrhage, left eye (principal); E11.9 Type 2 diabetes mellitus without complications; Z79.02 Long term (current) use of antithrombotics/antiplatelets; Z79.84 Long term (current) use of oral hypoglycemic drugs; Z79.899 Other long term (current) drug therapy
CPT/HCPCS: J0690; J2704; J3010; J3301; J3490

== ENCOUNTER 2022-04-06 01:04 | Inpatient (IN) | payer MEDICARE, OTHER ==
[2022-04-06 01:34] LABS: #Lymphocytes 0.9 thou/uL (1.20-3.40); #Monocytes 0.4 thou/uL (0.11-0.59); #Neutrophils 14.7 thou/uL (1.40-6.50); %Eosinophils 0.2 % (0.0-10.0); %Lymphocytes 5.7 % (21.0-51.0); %Monocytes 2.6 % (0.0-10.0); %Neutrophils 91.4 % (42.0-75.0); Hemoglobin 15.5 g/dL (14.0-18.0); Mean Corpuscular HGB CONC 33.5 g/dL (32.0-36.0); Mean Corpuscular Hemoglobin 30.7 pg (27.0-31.0); Mean Corpuscular Volume 91.6 fL (78.0-98.0); Mean Platelet Volume 8.5 fL (7.4-10.4); Platelet Count 258 thou/uL (130-400); RBC Distribution Width 12.8 % (11.5-14.5); Red Blood Cell (RBC) Count 5.04 mill/uL (4.70-6.10); White Blood Cell (WBC) Count 16.1 thou/uL (4.8-10.8)
[2022-04-06 01:55] LABS: ALT (SGPT) 28 U/L (8-55); AST (SGOT) 10 U/L (5-34); Albumin 3.7 g/dL (3.4-4.8); Alkaline Phosphatase 123 U/L (40-110); Anion Gap 16 mmol/L (10-20); BUN (Urea Nitrogen) 70 mg/dL (8.4-25.7); Bilirubin, Total 0.8 mg/dL (0.2-1.2); Calc. Creatinine Clearance 0 mL/min (70-130); Calcium 9.7 mg/dL (7.8-10.44); Carbon Dioxide 22 mmol/L (23-31); Chloride 103 mmol/L (98-107); Globulin 4.2 g/dL (2.4-3.5); Potassium 5.2 mmol/L (3.5-5.1); Protein, Total 7.9 g/dL (5.8-8.1); Sodium 136 mmol/L (136-145)
[2022-04-06 02:06] LABS: Glucose 561 mg/dL (83-110)
[2022-04-06] MEDS ORDERED: Acetaminophen 650 MG Suppository PR PRN (02:57)
[2022-04-06] MEDS ORDERED: Bisacodyl 10 MG SUPP PR PRN (02:57)
[2022-04-06] MEDS ORDERED: Dextrose 50% Abboject 50 ML SYRINGE SLOW IVP PRN (02:57)
[2022-04-06] MEDS ORDERED: Acetaminophen 325 MG TAB PO PRN (02:57)
[2022-04-06] MEDS ORDERED: Ondansetron PF 4 MG/2 ML Vial IVP PRN (02:57)
[2022-04-06] MEDS ORDERED: Dextrose 5% in Water 1,000 ML IV PRN (02:57)
[2022-04-06] MEDS ORDERED: Insulin Regular 300 UNITS/3 ML VIAL IVP SCH (04:00)
[2022-04-06 04:48] LABS: Anion Gap 14 mmol/L (10-20); BUN (Urea Nitrogen) 64 mg/dL (8.4-25.7); Calc. Creatinine Clearance 0 mL/min (70-130); Calcium 8.9 mg/dL (7.8-10.44); Carbon Dioxide 18 mmol/L (23-31); Chloride 109 mmol/L (98-107); Glucose 469 mg/dL (83-110); Potassium 5.4 mmol/L (3.5-5.1); Sodium 136 mmol/L (136-145)
[2022-04-06] MEDS: cefTRIAXone\\ROCEPHIN 1 GM in Sodium Chloride 0.9% 100 ML IVPB SCH (05:21)
[2022-04-06] MEDS: Sodium Chloride 0.9% 1,000 ML IV SCH ×2 (05:22→17:15)
[2022-04-06] MEDS: HumaLOG 300 UNITS/3 ML VIAL SC PRN (05:26)
[2022-04-06] MEDS ORDERED: Vancomycin 1 GM in Premix Bag 1 BAG IVPB SCH (06:00)
[2022-04-06 06:35] LABS: RBC/HPF 0-3 HPF (0-3); Squamous Epithelial None Seen HPF (0-3); WBC/HPF Greater than 50 HPF (0-3)
[2022-04-06 06:37] LABS: Bacteria/HPF 1+ HPF (None Seen); Bilirubin Negative (Negative); Blood, Urine 1+ (Negative); Clarity Turbid (Clear); Glucose, Urine (Dipstick) Greater than 1000 mg/dL (Negative); Ketone, Urine Negative (Negative); Leukocyte 500 Leu/uL (Negative); Nitrite Negative (Negative); Protein, Urine (Dipstick) 30 mg/dL (Neg-Trace); Specific Gravity, Urine 1.012 (1.002-1.036); Urobilinogen Normal mg/dL (Less than 2); pH, Urine 5.5 (5.0-9.0)
[2022-04-06 06:38] LABS: Urine Culture Reflex No No
[2022-04-06 07:48] LABS: #Monocytes 0.7 thou/uL (0.11-0.59); #Neutrophils 15.3 thou/uL (1.40-6.50); %Basophils 0.1 % (0.0-1.0); %Eosinophils 0.2 % (0.0-10.0); %Lymphocytes 5.9 % (21.0-51.0); %Monocytes 4.3 % (0.0-10.0); %Neutrophils 89.5 % (42.0-75.0); Hemoglobin 13.1 g/dL (14.0-18.0); Mean Corpuscular HGB CONC 33.3 g/dL (32.0-36.0); Mean Corpuscular Hemoglobin 30.4 pg (27.0-31.0); Mean Corpuscular Volume 91.3 fL (78.0-98.0); Mean Platelet Volume 8.8 fL (7.4-10.4); Platelet Count 221 thou/uL (130-400); RBC Distribution Width 12.6 % (11.5-14.5); White Blood Cell (WBC) Count 17.2 thou/uL (4.8-10.8)
[2022-04-06 08:05] LABS: Hemoglobin A1c 10.6 % (4.0-6.0)
[2022-04-06 08:09] LABS: ALT (SGPT) 23 U/L (8-55); AST (SGOT) 11 U/L (5-34); Albumin 3.2 g/dL (3.4-4.8); Alkaline Phosphatase 102 U/L (40-110); Anion Gap 13 mmol/L (10-20); BUN (Urea Nitrogen) 61 mg/dL (8.4-25.7); Bilirubin, Total 0.7 mg/dL (0.2-1.2); Calc. Creatinine Clearance 20 mL/min (70-130); Calcium 8.9 mg/dL (7.8-10.44); Carbon Dioxide 20 mmol/L (23-31); Chloride 112 mmol/L (98-107); Cholesterol 104 mg/dl (< 200 Desired); Globulin 3.6 g/dL (2.4-3.5); Glucose 279 mg/dL (83-110); HDL Cholesterol 26 mg/dL (>60 Neg Risk); LDL Cholesterol, Calculated 61 mg/dL; Potassium 4.6 mmol/L (3.5-5.1); Protein, Total 6.8 g/dL (5.8-8.1); Sodium 140 mmol/L (136-145); Triglycerides 86 mg/dL (Less than 150)
[2022-04-06] MEDS: Pantoprazole 40 MG VIAL IVP SCH (11:01)
[2022-04-07 04:45] LABS: #Lymphocytes 0.9 thou/uL (1.20-3.40); #Monocytes 0.8 thou/uL (0.11-0.59); %Basophils 0.1 % (0.0-1.0); %Eosinophils 0.1 % (0.0-10.0); %Lymphocytes 6.3 % (21.0-51.0); %Monocytes 5.7 % (0.0-10.0); %Neutrophils 87.8 % (42.0-75.0); Hemoglobin 13.2 g/dL (14.0-18.0); Mean Corpuscular HGB CONC 33.3 g/dL (32.0-36.0); Mean Corpuscular Hemoglobin 30.8 pg (27.0-31.0); Mean Corpuscular Volume 92.4 fL (78.0-98.0); Platelet Count 229 thou/uL (130-400); Red Blood Cell (RBC) Count 4.29 mill/uL (4.70-6.10); White Blood Cell (WBC) Count 14.8 thou/uL (4.8-10.8)
[2022-04-07 05:10] LABS: Vancomycin, Random Less than 1.1 ug/mL (See Comment)
[2022-04-07 05:18] LABS: Anion Gap 16 mmol/L (10-20); BUN (Urea Nitrogen) 52 mg/dL (8.4-25.7); Calc. Creatinine Clearance 22 mL/min (70-130); Calcium 8.9 mg/dL (7.8-10.44); Carbon Dioxide 17 mmol/L (23-31); Chloride 117 mmol/L (98-107); Glucose 324 mg/dL (83-110); Potassium 5.3 mmol/L (3.5-5.1); Sodium 145 mmol/L (136-145)
[2022-04-07] MEDS: cefTRIAXone\\ROCEPHIN 1 GM in Sodium Chloride 0.9% 100 ML IVPB SCH (05:26)
[2022-04-07] MEDS ORDERED: VANCOMYCIN HCL IVPB SCH (06:00)
[2022-04-07] MEDS ORDERED: Vancomycin 1 GM in Premix Bag 1 BAG IVPB SCH (06:00)
[2022-04-07] MEDS ORDERED: SODIUM CHLORIDE 0.9% IVPB SCH (06:00)
[2022-04-07] MEDS: Sodium Chloride 0.9% 1,000 ML IV SCH ×2 (07:32→10:03)
[2022-04-07] MEDS: Pantoprazole 40 MG VIAL IVP SCH (10:04)
[2022-04-07] MEDS ORDERED: HumaLOG 300 UNITS/3 ML VIAL SC SCH (12:30)
[2022-04-07] MEDS: HumaLOG 300 UNITS/3 ML VIAL SC PRN ×2 (17:30→21:09)
[2022-04-08] MEDS: cefTRIAXone\\ROCEPHIN 1 GM in Sodium Chloride 0.9% 100 ML IVPB SCH (05:18)
[2022-04-08 05:29] LABS: Vancomycin, Random 9.8 ug/mL (See Comment)
[2022-04-08] MEDS: HumaLOG 300 UNITS/3 ML VIAL SC PRN ×2 (06:39→17:56)
[2022-04-08 07:59] LABS: Anion Gap 19 mmol/L (10-20); BUN (Urea Nitrogen) 48 mg/dL (8.4-25.7); Calc. Creatinine Clearance 2 mL/min (70-130); Calcium 9.4 mg/dL (7.8-10.44); Carbon Dioxide 13 mmol/L (23-31); Glucose 277 mg/dL (83-110); Potassium 4.8 mmol/L (3.5-5.1); Sodium 153 mmol/L (136-145)
[2022-04-08 08:10] LABS: Chloride 126 mmol/L (98-107)
[2022-04-08] MEDS ORDERED: Insulin Glargine 30 UNITS/0.3 ML VIAL SC SCH ×2 (09:00→21:00)
[2022-04-08] MEDS: Pantoprazole 40 MG VIAL IVP SCH (10:14)
[2022-04-08] MEDS: Dextrose 5% in Water 1,000 ML IV SCH (13:10)
[2022-04-08] MEDS: Sodium Chloride 0.9% 1,000 ML IV SCH (13:19)
[2022-04-09] MEDS: Dextrose 5% in Water 1,000 ML IV SCH (05:53)
[2022-04-09] MEDS: cefTRIAXone\\ROCEPHIN 1 GM in Sodium Chloride 0.9% 100 ML IVPB SCH (05:54)
[2022-04-09 06:26] LABS: Anion Gap 12 mmol/L (10-20); BUN (Urea Nitrogen) 37 mg/dL (8.4-25.7); Calc. Creatinine Clearance 3 mL/min (70-130); Calcium 8.9 mg/dL (7.8-10.44); Carbon Dioxide 22 mmol/L (23-31); Chloride 121 mmol/L (98-107); Glucose 275 mg/dL (83-110); Potassium 3.9 mmol/L (3.5-5.1); Sodium 151 mmol/L (136-145)
[2022-04-09] MEDS: Lisinopril 10 MG TAB PO SCH (09:32)
[2022-04-09] MEDS: Pantoprazole 40 MG VIAL IVP SCH (09:33)
[2022-04-09] MEDS: Insulin Glargine 30 UNITS/0.3 ML VIAL SC SCH ×2 (09:33→22:28)
[2022-04-09] MEDS: Clopidogrel Bisulfate 75 MG TAB PO SCH (09:33)
[2022-04-09] MEDS: HumaLOG 300 UNITS/3 ML VIAL SC PRN ×2 (13:17→17:10)
[2022-04-10] MEDS: Dextrose 5% in Water 1,000 ML IV SCH ×2 (02:56→08:17)
[2022-04-10 06:38] LABS: #Eosinphils 0.1 thou/uL (0.0-0.7); #Lymphocytes 1.6 thou/uL (1.20-3.40); #Monocytes 0.7 thou/uL (0.11-0.59); #Neutrophils 9.2 thou/uL (1.40-6.50); %Basophils 0.4 % (0.0-1.0); %Eosinophils 0.5 % (0.0-10.0); %Monocytes 6.4 % (0.0-10.0); %Neutrophils 78.7 % (42.0-75.0); Mean Corpuscular HGB CONC 32.1 g/dL (32.0-36.0); Mean Corpuscular Hemoglobin 30.2 pg (27.0-31.0); Mean Corpuscular Volume 94.2 fL (78.0-98.0); Mean Platelet Volume 8.9 fL (7.4-10.4); Platelet Count 232 thou/uL (130-400); RBC Distribution Width 13.1 % (11.5-14.5); Red Blood Cell (RBC) Count 4.31 mill/uL (4.70-6.10); White Blood Cell (WBC) Count 11.6 thou/uL (4.8-10.8)
[2022-04-10 07:01] LABS: Anion Gap 13 mmol/L (10-20); BUN (Urea Nitrogen) 29 mg/dL (8.4-25.7); Calc. Creatinine Clearance 33 mL/min (70-130); Calcium 8.6 mg/dL (7.8-10.44); Carbon Dioxide 21 mmol/L (23-31); Chloride 115 mmol/L (98-107); Glucose 244 mg/dL (83-110); Potassium 3.4 mmol/L (3.5-5.1); Sodium 146 mmol/L (136-145)
[2022-04-10 07:39] VITALS: BMI 23.8
[2022-04-10] MEDS: Lisinopril 10 MG TAB PO SCH (08:20)
[2022-04-10] MEDS: Insulin Glargine 30 UNITS/0.3 ML VIAL SC SCH ×2 (08:20→20:40)
[2022-04-10] MEDS: Clopidogrel Bisulfate 75 MG TAB PO SCH (08:20)
[2022-04-10] MEDS: Pantoprazole 40 MG VIAL IVP SCH (10:05)
[2022-04-10] MEDS: HumaLOG 300 UNITS/3 ML VIAL SC PRN (17:01)
[2022-04-11] MEDS: Lisinopril 10 MG TAB PO SCH (08:12)
[2022-04-11] MEDS: Insulin Glargine 30 UNITS/0.3 ML VIAL SC SCH (08:12)
[2022-04-11] MEDS: Clopidogrel Bisulfate 75 MG TAB PO SCH (08:12)
[2022-04-11 08:31] VITALS: TEMP 97.8
[2022-04-11 08:57] LABS: Anion Gap 14 mmol/L (10-20); BUN (Urea Nitrogen) 25 mg/dL (8.4-25.7); Calc. Creatinine Clearance 33 mL/min (70-130); Calcium 8.3 mg/dL (7.8-10.44); Carbon Dioxide 22 mmol/L (23-31); Chloride 111 mmol/L (98-107); Glucose 71 mg/dL (83-110); Potassium 3.3 mmol/L (3.5-5.1); Sodium 144 mmol/L (136-145)
[2022-04-11 12:57] VITALS: BP 120/71
== END 2022-04-11 16:24 | DRG 640 ==
LOC: ERS 01:04 → 2NO 02:42 → T4-A 04-08 18:23
PROVIDERS: ADMIT Internal Medicine; ATTEND Internal Medicine
DX: E86.0 Dehydration (principal); G93.41 Metabolic encephalopathy; N39.0 Urinary tract infection, site not specified; N17.9 Acute kidney failure, unspecified; E87.0 Hyperosmolality and hypernatremia; E87.2 Acidosis; Z20.822 Contact with and (suspected) exposure to COVID-19; E78.5 Hyperlipidemia, unspecified; E78.00 Pure hypercholesterolemia, unspecified; I10 Essential (primary) hypertension; R13.10 Dysphagia, unspecified; E11.65 Type 2 diabetes mellitus with hyperglycemia; E87.5 Hyperkalemia; B96.1 Klebsiella pneumoniae [K. pneumoniae] as the cause of diseases classified elsewhere; Z87.891 Personal history of nicotine dependence; I69.991 Dysphagia following unspecified cerebrovascular disease; Z79.899 Other long term (current) drug therapy
CPT/HCPCS: 36415; 36416; 70450; 71045; 80048; 80053; 80061; 80202; 81001; 83036; 84443; 84484; 85025; 87077; 87086; 87186; 93005; C9113; J0696; J1815; J3370; J3490; J7050; J7070; U0003; U0005

== ENCOUNTER 2022-05-30 10:33 | Inpatient (IN) | payer MEDICARE, OTHER ==
[2022-05-30 11:36] LABS: #Lymphocytes 0.9 thou/uL (1.20-3.40); #Monocytes 0.3 thou/uL (0.11-0.59); #Neutrophils 4.6 thou/uL (1.40-6.50); %Eosinophils 0.5 % (0.0-10.0); %Monocytes 5.7 % (0.0-10.0); %Neutrophils 78.9 % (42.0-75.0); Hemoglobin 13.3 g/dL (14.0-18.0); Mean Corpuscular HGB CONC 33.5 g/dL (32.0-36.0); Mean Corpuscular Hemoglobin 31.4 pg (27.0-31.0); Mean Corpuscular Volume 93.7 fL (78.0-98.0); Mean Platelet Volume 7.7 fL (7.4-10.4); Platelet Count 285 thou/uL (130-400); RBC Distribution Width 13.9 % (11.5-14.5); Red Blood Cell (RBC) Count 4.25 mill/uL (4.70-6.10); White Blood Cell (WBC) Count 5.9 thou/uL (4.8-10.8)
[2022-05-30 11:41] LABS: Bacteria/HPF 4+ HPF (None Seen); Bilirubin Negative (Negative); Blood, Urine Negative (Negative); Glucose, Urine (Dipstick) Normal (Negative); Ketone, Urine Negative (Negative); Leukocyte 500 Leu/uL (Negative); Nitrite Negative (Negative); Protein, Urine (Dipstick) 30 mg/dL (Neg-Trace); RBC/HPF 0-3 HPF (0-3); Specific Gravity, Urine 1.011 (1.002-1.036); Squamous Epithelial None Seen HPF (0-3); Urobilinogen Normal mg/dL (Less than 2); WBC/HPF 21-50 HPF (0-3); pH, Urine 6.5 (5.0-9.0)
[2022-05-30 11:43] LABS: Clarity Cloudy (Clear)
[2022-05-30 11:47] LABS: Amphetamine Not Detected (NotDetected); Barbiturates Screen Not Detected (NotDetected); Benzodiazepine Screen Not Detected (NotDetected); Cocaine Metabolite Screen Not Detected (NotDetected); Methadone Not Detected (NotDetected); Methamphetamine Not Detected (NotDetected); Opiate Screen Not Detected (NotDetected); Oxycodone Screen Not Detected (NotDetected); Phencyclidine (PCP) Not Detected (NotDetected); THC/Cannabinoid Screen Not Detected (NotDetected); Tricyclic Screen Not Detected (NotDetected)
[2022-05-30 11:56] LABS: ALT (SGPT) 44 U/L (8-55); AST (SGOT) 33 U/L (5-34); Albumin 3.4 g/dL (3.4-4.8); Alkaline Phosphatase 85 U/L (40-110); Anion Gap 14 mmol/L (10-20); BUN (Urea Nitrogen) 31 mg/dL (8.4-25.7); Bilirubin, Total 0.3 mg/dL (0.2-1.2); Calc. Creatinine Clearance 0 mL/min (70-130); Calcium 8.3 mg/dL (7.8-10.44); Carbon Dioxide 21 mmol/L (23-31); Chloride 107 mmol/L (98-107); Estimated GFR 43; Globulin 3.7 g/dL (2.4-3.5); Glucose 109 mg/dL (83-110); Protein, Total 7.1 g/dL (5.8-8.1); Sodium 137 mmol/L (136-145)
[2022-05-30 11:58] LABS: Acetaminophen Less than 10.0 mcg/mL (10.0-30.0); Alcohol Less than 10 mg/dL (Less than 10); Salicylate Less than 8.0 mg/dL (15.0-30.0)
[2022-05-30] MEDS ORDERED: Insulin Regular 300 UNITS/3 ML VIAL SC PRN (12:35)
[2022-05-30] MEDS ORDERED: cefTRIAXone\\ROCEPHIN 1 GM VIAL ONE (12:46)
[2022-05-30 13:21] LABS: Hemoglobin A1c 7.7 % (4.0-6.0)
[2022-05-30] MEDS ORDERED: HumaLOG 300 UNITS/3 ML VIAL SC PRN (13:23)
[2022-05-30] MEDS ORDERED: Dextrose 5% in Water 1,000 ML IV PRN (13:23)
[2022-05-30] MEDS ORDERED: Dextrose 50% Abboject 50 ML SYRINGE SLOW IVP PRN (13:23)
[2022-05-30] MEDS ORDERED: Iopamidol-370 76% 500 ML 1 ML ONE (14:13)
[2022-05-30] MEDS: cefTRIAXone\\ROCEPHIN 1 GM in Sodium Chloride 0.9% 100 ML IVPB SCH (17:11)
[2022-05-30 17:59] VITALS: BMI 19.9
[2022-05-30] MEDS: Atorvastatin Calcium 40 MG TAB PO SCH (21:46)
[2022-05-31 05:01] LABS: Cardiac Risk 3.4 (Less than 4.5)
[2022-05-31] MEDS: Aspirin 81 mg Enteric Coated Tablet PO SCH (08:15)
[2022-05-31] MEDS: Aspirin 300 MG Suppository PR SCH (09:35)
[2022-05-31] MEDS: cefTRIAXone\\ROCEPHIN 1 GM in Sodium Chloride 0.9% 100 ML IVPB SCH (12:19)
[2022-05-31] MEDS ORDERED: hydrOXYzine 25 MG TAB PO PRN (21:36)
[2022-05-31] MEDS: Atorvastatin Calcium 40 MG TAB PO SCH (21:53)
[2022-06-01] MEDS: Aspirin 300 MG Suppository PR SCH (10:11)
[2022-06-01] MEDS: cefTRIAXone\\ROCEPHIN 1 GM in Sodium Chloride 0.9% 100 ML IVPB SCH (13:14)
[2022-06-01] MEDS ORDERED: Aspirin Chewable 81 MG TAB PO SCH (13:15)
[2022-06-01] MEDS: Aspirin 81 mg Enteric Coated Tablet PO SCH (13:17)
[2022-06-01] MEDS: Atorvastatin Calcium 40 MG TAB PO SCH (20:17)
[2022-06-02 05:30] LABS: #Eosinphils 0.1 thou/uL (0.0-0.7); #Lymphocytes 2.2 thou/uL (1.20-3.40); #Monocytes 0.7 thou/uL (0.11-0.59); #Neutrophils 5.3 thou/uL (1.40-6.50); %Basophils 0.4 % (0.0-1.0); %Eosinophils 1.6 % (0.0-10.0); %Lymphocytes 26.3 % (21.0-51.0); %Monocytes 8.3 % (0.0-10.0); %Neutrophils 63.3 % (42.0-75.0); Hemoglobin 14.5 g/dL (14.0-18.0); Mean Corpuscular HGB CONC 33.1 g/dL (32.0-36.0); Mean Corpuscular Hemoglobin 30.8 pg (27.0-31.0); Mean Corpuscular Volume 93.2 fL (78.0-98.0); Mean Platelet Volume 7.6 fL (7.4-10.4); Platelet Count 324 thou/uL (130-400); RBC Distribution Width 13.6 % (11.5-14.5); Red Blood Cell (RBC) Count 4.72 mill/uL (4.70-6.10); White Blood Cell (WBC) Count 8.4 thou/uL (4.8-10.8)
[2022-06-02 05:59] LABS: Anion Gap 16 mmol/L (10-20); BUN (Urea Nitrogen) 25 mg/dL (8.4-25.7); Calc. Creatinine Clearance 31 mL/min (70-130); Calcium 9.4 mg/dL (7.8-10.44); Carbon Dioxide 19 mmol/L (23-31); Chloride 110 mmol/L (98-107); Estimated GFR 45; Glucose 115 mg/dL (83-110); Potassium 4.7 mmol/L (3.5-5.1); Sodium 140 mmol/L (136-145)
[2022-06-02] MEDS: Aspirin Chewable 81 MG TAB PO SCH (08:57)
[2022-06-02] MEDS: Heparin 5,000 UNITS/ML VIAL SC SCH ×2 (09:49→20:38)
[2022-06-02] MEDS: Cefdinir 300 MG CAP PO SCH ×3 (09:49→20:38)
[2022-06-02] MEDS ORDERED: Acetaminophen 650 MG/20.3 ML UDCUP PO PRN (10:01)
[2022-06-02] MEDS: Acetaminophen 325 MG TAB PO PRN (10:25)
[2022-06-02] MEDS: HumaLOG 300 UNITS/3 ML VIAL SC PRN (12:17)
[2022-06-02] MEDS: Atorvastatin Calcium 40 MG TAB PO SCH (20:38)
[2022-06-03] MEDS: Acetaminophen 325 MG TAB PO PRN (09:45)
[2022-06-03] MEDS: Heparin 5,000 UNITS/ML VIAL SC SCH ×2 (09:45→20:25)
[2022-06-03] MEDS: Aspirin Chewable 81 MG TAB PO SCH (09:46)
[2022-06-03] MEDS: Cefdinir 300 MG CAP PO SCH ×2 (09:46→20:25)
[2022-06-03] MEDS: ALPRAZolam 0.25 MG TAB PO PRN ×2 (10:41→20:25)
[2022-06-03] MEDS: HumaLOG 300 UNITS/3 ML VIAL SC PRN (16:52)
[2022-06-03] MEDS: Atorvastatin Calcium 40 MG TAB PO SCH (20:25)
[2022-06-03] MEDS ORDERED: hydrALAZINE 10 MG TAB PO SCH (22:45)
[2022-06-03] MEDS ORDERED: hydrOXYzine 10 MG TAB PO SCH (23:30)
[2022-06-04] MEDS: Aspirin Chewable 81 MG TAB PO SCH (10:00)
[2022-06-04] MEDS: Heparin 5,000 UNITS/ML VIAL SC SCH ×2 (10:00→21:31)
[2022-06-04] MEDS: HumaLOG 300 UNITS/3 ML VIAL SC PRN ×2 (13:16→17:02)
[2022-06-04] MEDS: Atorvastatin Calcium 40 MG TAB PO SCH (21:31)
[2022-06-05 05:59] LABS: #Basophils 0.1 thou/uL (0.0-0.2); #Eosinphils 0.3 thou/uL (0.0-0.7); #Lymphocytes 2.2 thou/uL (1.20-3.40); #Monocytes 0.4 thou/uL (0.11-0.59); #Neutrophils 5.8 thou/uL (1.40-6.50); %Basophils 0.8 % (0.0-1.0); %Monocytes 4.6 % (0.0-10.0); %Neutrophils 66.7 % (42.0-75.0); Hemoglobin 14.1 g/dL (14.0-18.0); Mean Corpuscular HGB CONC 33.2 g/dL (32.0-36.0); Mean Corpuscular Hemoglobin 30.6 pg (27.0-31.0); Mean Corpuscular Volume 92.2 fL (78.0-98.0); Mean Platelet Volume 7.7 fL (7.4-10.4); Platelet Count 327 thou/uL (130-400); RBC Distribution Width 13.8 % (11.5-14.5); Red Blood Cell (RBC) Count 4.61 mill/uL (4.70-6.10); White Blood Cell (WBC) Count 8.6 thou/uL (4.8-10.8)
[2022-06-05 06:08] LABS: Anion Gap 15 mmol/L (10-20); BUN (Urea Nitrogen) 33 mg/dL (8.4-25.7); Calc. Creatinine Clearance 30 mL/min (70-130); Calcium 9.2 mg/dL (7.8-10.44); Carbon Dioxide 20 mmol/L (23-31); Chloride 114 mmol/L (98-107); Estimated GFR 45; Glucose 132 mg/dL (83-110); Potassium 4.3 mmol/L (3.5-5.1); Sodium 145 mmol/L (136-145)
[2022-06-05] MEDS: Aspirin Chewable 81 MG TAB PO SCH (09:10)
[2022-06-05] MEDS: Heparin 5,000 UNITS/ML VIAL SC SCH ×2 (09:13→20:16)
[2022-06-05] MEDS: Acetaminophen 325 MG TAB PO PRN (20:16)
[2022-06-05] MEDS: Atorvastatin Calcium 40 MG TAB PO SCH (20:17)
[2022-06-06 05:41] LABS: #Basophils 0.1 thou/uL (0.0-0.2); #Eosinphils 0.2 thou/uL (0.0-0.7); #Lymphocytes 2.4 thou/uL (1.20-3.40); #Monocytes 0.4 thou/uL (0.11-0.59); %Basophils 0.7 % (0.0-1.0); %Lymphocytes 29.6 % (21.0-51.0); %Monocytes 5.1 % (0.0-10.0); %Neutrophils 61.7 % (42.0-75.0); Mean Corpuscular Hemoglobin 30.5 pg (27.0-31.0); Mean Corpuscular Volume 92.3 fL (78.0-98.0); Mean Platelet Volume 8.3 fL (7.4-10.4); Platelet Count 317 thou/uL (130-400); RBC Distribution Width 13.8 % (11.5-14.5); Red Blood Cell (RBC) Count 4.61 mill/uL (4.70-6.10); White Blood Cell (WBC) Count 8.1 thou/uL (4.8-10.8)
[2022-06-06 05:59] LABS: Anion Gap 15 mmol/L (10-20); BUN (Urea Nitrogen) 32 mg/dL (8.4-25.7); Calc. Creatinine Clearance 29 mL/min (70-130); Calcium 9.2 mg/dL (7.8-10.44); Carbon Dioxide 21 mmol/L (23-31); Estimated GFR 42; Glucose 125 mg/dL (83-110)
[2022-06-06 06:20] LABS: Chloride 111 mmol/L (98-107); Potassium 4.3 mmol/L (3.5-5.1); Sodium 143 mmol/L (136-145)
[2022-06-06] MEDS: Aspirin Chewable 81 MG TAB PO SCH (09:18)
[2022-06-06] MEDS: Heparin 5,000 UNITS/ML VIAL SC SCH ×2 (09:18→22:33)
[2022-06-06] MEDS: HumaLOG 300 UNITS/3 ML VIAL SC PRN (17:15)
[2022-06-06] MEDS ORDERED: Famotidine 20 MG TAB PO SCH (22:15)
[2022-06-06] MEDS ORDERED: Nitroglycerin 0.4 MG TAB (25 Tab Bottle) SL SCH (22:15)
[2022-06-06] MEDS: Acetaminophen 325 MG TAB PO PRN (22:32)
[2022-06-06] MEDS: Atorvastatin Calcium 40 MG TAB PO SCH (22:33)
[2022-06-06 22:39] LABS: Troponin I Less than 0.010 ng/mL (< 0.028)
[2022-06-07 07:31] LABS: #Basophils 0.1 thou/uL (0.0-0.2); #Eosinphils 0.2 thou/uL (0.0-0.7); #Lymphocytes 2.1 thou/uL (1.20-3.40); #Monocytes 0.3 thou/uL (0.11-0.59); #Neutrophils 4.9 thou/uL (1.40-6.50); %Basophils 0.7 % (0.0-1.0); %Eosinophils 2.9 % (0.0-10.0); %Lymphocytes 28.2 % (21.0-51.0); %Monocytes 4.2 % (0.0-10.0); %Neutrophils 64.1 % (42.0-75.0); Mean Corpuscular HGB CONC 32.4 g/dL (32.0-36.0); Mean Corpuscular Volume 92.4 fL (78.0-98.0); Mean Platelet Volume 8.6 fL (7.4-10.4); Platelet Count 310 thou/uL (130-400); RBC Distribution Width 13.9 % (11.5-14.5); Red Blood Cell (RBC) Count 4.68 mill/uL (4.70-6.10); White Blood Cell (WBC) Count 7.6 thou/uL (4.8-10.8)
[2022-06-07 07:50] LABS: Anion Gap 17 mmol/L (10-20); BUN (Urea Nitrogen) 33 mg/dL (8.4-25.7); Calc. Creatinine Clearance 29 mL/min (70-130); Calcium 9.3 mg/dL (7.8-10.44); Carbon Dioxide 21 mmol/L (23-31); Chloride 110 mmol/L (98-107); Estimated GFR 42; Glucose 98 mg/dL (83-110); Sodium 144 mmol/L (136-145)
[2022-06-07 08:30] LABS: ALT (SGPT) 43 U/L (8-55); AST (SGOT) 33 U/L (5-34); Albumin 3.7 g/dL (3.4-4.8); Alkaline Phosphatase 89 U/L (40-110); Anion Gap 17 mmol/L (10-20); BUN (Urea Nitrogen) 33 mg/dL (8.4-25.7); Bilirubin, Total 0.6 mg/dL (0.2-1.2); CRP (Inflammatory) Less than 0.50 mg/dL (= or < 0.5); Calc. Creatinine Clearance 28 mL/min (70-130); Calcium 9.3 mg/dL (7.8-10.44); Carbon Dioxide 20 mmol/L (23-31); Chloride 111 mmol/L (98-107); Estimated GFR 42; Globulin 3.6 g/dL (2.4-3.5); Glucose 98 mg/dL (83-110); Protein, Total 7.3 g/dL (5.8-8.1); Sodium 144 mmol/L (136-145)
[2022-06-07] MEDS: Heparin 5,000 UNITS/ML VIAL SC SCH ×2 (08:49→19:52)
[2022-06-07] MEDS: Aspirin Chewable 81 MG TAB PO SCH (08:50)
[2022-06-07] MEDS: ALPRAZolam 0.25 MG TAB PO PRN ×2 (14:02→22:29)
[2022-06-07] MEDS: Acetaminophen 325 MG TAB PO PRN (19:52)
[2022-06-07] MEDS: Atorvastatin Calcium 40 MG TAB PO SCH (19:52)
[2022-06-07] MEDS: (RENAL) NIRMATRELVIR 150 MG/RITONAVIR 100 MG TABLET PO SCH (19:53)
[2022-06-08 05:36] LABS: #Basophils 0.1 thou/uL (0.0-0.2); #Eosinphils 0.2 thou/uL (0.0-0.7); #Lymphocytes 1.9 thou/uL (1.20-3.40); #Monocytes 0.4 thou/uL (0.11-0.59); #Neutrophils 5.5 thou/uL (1.40-6.50); %Basophils 0.9 % (0.0-1.0); %Lymphocytes 23.9 % (21.0-51.0); %Monocytes 5.1 % (0.0-10.0); %Neutrophils 67.1 % (42.0-75.0); Hemoglobin 14.2 g/dL (14.0-18.0); Mean Corpuscular HGB CONC 32.8 g/dL (32.0-36.0); Mean Corpuscular Hemoglobin 30.3 pg (27.0-31.0); Mean Corpuscular Volume 92.3 fL (78.0-98.0); Mean Platelet Volume 8.8 fL (7.4-10.4); Platelet Count 250 thou/uL (130-400); RBC Distribution Width 13.8 % (11.5-14.5); Red Blood Cell (RBC) Count 4.69 mill/uL (4.70-6.10); White Blood Cell (WBC) Count 8.1 thou/uL (4.8-10.8)
[2022-06-08 06:00] LABS: Anion Gap 13 mmol/L (10-20); BUN (Urea Nitrogen) 29 mg/dL (8.4-25.7); Calc. Creatinine Clearance 32 mL/min (70-130); Calcium 9.1 mg/dL (7.8-10.44); Carbon Dioxide 22 mmol/L (23-31); Chloride 111 mmol/L (98-107); Estimated GFR 49; Glucose 128 mg/dL (83-110); Potassium 3.9 mmol/L (3.5-5.1); Sodium 142 mmol/L (136-145)
[2022-06-08] MEDS: (RENAL) NIRMATRELVIR 150 MG/RITONAVIR 100 MG TABLET PO SCH ×2 (09:14→19:51)
[2022-06-08] MEDS: Heparin 5,000 UNITS/ML VIAL SC SCH ×2 (09:14→19:51)
[2022-06-08] MEDS: Aspirin Chewable 81 MG TAB PO SCH (09:14)
[2022-06-08] MEDS: HumaLOG 300 UNITS/3 ML VIAL SC PRN (13:32)
[2022-06-08] MEDS: ALPRAZolam 0.25 MG TAB PO PRN (19:50)
[2022-06-08] MEDS: Acetaminophen 325 MG TAB PO PRN (19:50)
[2022-06-08] MEDS: Atorvastatin Calcium 40 MG TAB PO SCH (19:51)
[2022-06-09] MEDS: Acetaminophen 325 MG TAB PO PRN (03:32)
[2022-06-09 06:46] LABS: #Basophils 0.1 thou/uL (0.0-0.2); #Eosinphils 0.2 thou/uL (0.0-0.7); #Lymphocytes 2.1 thou/uL (1.20-3.40); #Monocytes 0.4 thou/uL (0.11-0.59); #Neutrophils 4.8 thou/uL (1.40-6.50); %Basophils 0.8 % (0.0-1.0); %Eosinophils 2.7 % (0.0-10.0); %Lymphocytes 27.6 % (21.0-51.0); %Monocytes 4.9 % (0.0-10.0); Hemoglobin 14.7 g/dL (14.0-18.0); Mean Corpuscular HGB CONC 32.5 g/dL (32.0-36.0); Mean Corpuscular Volume 92.2 fL (78.0-98.0); Mean Platelet Volume 8.2 fL (7.4-10.4); Platelet Count 265 thou/uL (130-400); RBC Distribution Width 13.9 % (11.5-14.5); White Blood Cell (WBC) Count 7.4 thou/uL (4.8-10.8)
[2022-06-09 07:08] LABS: Anion Gap 12 mmol/L (10-20); BUN (Urea Nitrogen) 27 mg/dL (8.4-25.7); Calc. Creatinine Clearance 31 mL/min (70-130); Calcium 9.4 mg/dL (7.8-10.44); Carbon Dioxide 24 mmol/L (23-31); Chloride 110 mmol/L (98-107); Estimated GFR 46; Glucose 137 mg/dL (83-110); Sodium 142 mmol/L (136-145)
[2022-06-09 07:50] VITALS: BP 144/75; TEMP 97.7
[2022-06-09] MEDS: Heparin 5,000 UNITS/ML VIAL SC SCH (08:29)
[2022-06-09] MEDS: Aspirin Chewable 81 MG TAB PO SCH (08:29)
[2022-06-09] MEDS: (RENAL) NIRMATRELVIR 150 MG/RITONAVIR 100 MG TABLET PO SCH (08:38)
== END 2022-06-09 10:50 | disposition swing bed (61) | DRG 64 ==
LOC: ERS 10:33 → ERHOLD 12:46 → 2NO 15:52 → NEURO 06-01 12:50
PROVIDERS: ADMIT Internal Medicine; ATTEND Internal Medicine
PROC: 8E0ZXY6 Isolation (ICD-10-PCS; principal; 2022-06-06)
PROC: XW0DXF5 Introduction of Other New Technology Therapeutic Substance into Mouth and Pharynx, External Approach, New Technology Group 5 (ICD-10-PCS; 2022-06-07)
DX: I63.9 Cerebral infarction, unspecified (principal); R29.716 NIHSS score 16; G93.41 Metabolic encephalopathy; U07.1 COVID-19; G81.91 Hemiplegia, unspecified affecting right dominant side; N30.00 Acute cystitis without hematuria; N17.9 Acute kidney failure, unspecified; N18.30 Chronic kidney disease, stage 3 unspecified; E78.00 Pure hypercholesterolemia, unspecified; E11.22 Type 2 diabetes mellitus with diabetic chronic kidney disease; I12.9 Hypertensive chronic kidney disease with stage 1 through stage 4 chronic kidney disease, or unspecified chronic kidney disease; E11.65 Type 2 diabetes mellitus with hyperglycemia; R47.81 Slurred speech; R29.810 Facial weakness; I44.0 Atrioventricular block, first degree; R00.1 Bradycardia, unspecified; Z78.1 Physical restraint status; Z95.5 Presence of coronary angioplasty implant and graft; Z90.49 Acquired absence of other specified parts of digestive tract; Z87.440 Personal history of urinary (tract) infections; Z79.899 Other long term (current) drug therapy; Z79.02 Long term (current) use of antithrombotics/antiplatelets; Z79.4 Long term (current) use of insulin; Z87.891 Personal history of nicotine dependence; I69.391 Dysphagia following cerebral infarction
CPT/HCPCS: 36415; 36416; 51701; 70450; 70496; 70498; 70551; 71045; 80048; 80053; 80061; 80306; 80307; 81003; 81015; 82140; 83036; 84443; 84484; 85025; 86140; 87040; 93005; 93010; 93306; 95712; 95819; 95957; 96365; J0696; J1644; J1815; J3490; J7070; Q9967; U0003; U0005

== ENCOUNTER 2022-06-27 18:12 | Inpatient (IN) | payer OTHER ==
[2022-06-27] MEDS ORDERED: Dextrose 50% Abboject 50 ML SYRINGE SLOW IVP PRN (18:50)
[2022-06-27] MEDS ORDERED: Dextrose 5% in Water 1,000 ML IV PRN (18:50)
[2022-06-27] MEDS ORDERED: HumaLOG 300 UNITS/3 ML VIAL SC PRN (18:50)
[2022-06-27 19:11] VITALS: BMI 20.2
[2022-06-27] MEDS ORDERED: Haloperidol 5 MG TAB PO SCH (21:00)
[2022-06-27 21:02] LABS: ALT (SGPT) 92 U/L (8-55); AST (SGOT) 56 U/L (5-34); Alkaline Phosphatase 141 U/L (40-110); Anion Gap 19 mmol/L (10-20); BUN (Urea Nitrogen) 63 mg/dL (8.4-25.7); Bilirubin, Total 0.6 mg/dL (0.2-1.2); Calc. Creatinine Clearance 22 mL/min (70-130); Calcium 9.7 mg/dL (7.8-10.44); Carbon Dioxide 19 mmol/L (23-31); Chloride 120 mmol/L (98-107); Estimated GFR 31; Globulin 3.9 g/dL (2.4-3.5); Glucose 117 mg/dL (83-110); Potassium 4.2 mmol/L (3.5-5.1); Protein, Total 7.9 g/dL (5.8-8.1); Sodium 154 mmol/L (136-145)
[2022-06-27 22:06] LABS: #Basophils 0.1 thou/uL (0.0-0.2); #Lymphocytes 1.9 thou/uL (1.20-3.40); #Monocytes 0.6 thou/uL (0.11-0.59); #Neutrophils 5.6 thou/uL (1.40-6.50); %Basophils 0.8 % (0.0-1.0); %Eosinophils 0.4 % (0.0-10.0); %Lymphocytes 23.2 % (21.0-51.0); %Monocytes 7.3 % (0.0-10.0); %Neutrophils 68.2 % (42.0-75.0); Hemoglobin 14.6 g/dL (14.0-18.0); Mean Corpuscular HGB CONC 33.5 g/dL (32.0-36.0); Mean Corpuscular Hemoglobin 31.5 pg (27.0-31.0); Mean Corpuscular Volume 94.1 fL (78.0-98.0); Mean Platelet Volume 8.9 fL (7.4-10.4); Platelet Count 268 thou/uL (130-400); RBC Distribution Width 13.9 % (11.5-14.5); Red Blood Cell (RBC) Count 4.64 mill/uL (4.70-6.10); White Blood Cell (WBC) Count 8.2 thou/uL (4.8-10.8)
[2022-06-27] MEDS ORDERED: Dextrose 5 %-0.45 % NaCl 1,000 ML IV SCH (22:15)
[2022-06-27] MEDS ORDERED: Haloperidol Lactate 5 MG/ML VIAL SLOW IVP SCH (22:15)
[2022-06-27] MEDS: Atorvastatin Calcium 40 MG TAB PO SCH (22:15)
[2022-06-27] MEDS: Dextrose 5 %-0.45 % NaCl 1,000 ML IV SCH (22:27)
[2022-06-28] MEDS: Dextrose 5 %-0.45 % NaCl 1,000 ML IV SCH ×3 (05:35→17:52)
[2022-06-28 06:17] LABS: #Basophils 0.1 thou/uL (0.0-0.2); #Eosinphils 0.1 thou/uL (0.0-0.7); #Lymphocytes 1.8 thou/uL (1.20-3.40); #Monocytes 0.6 thou/uL (0.11-0.59); %Basophils 0.9 % (0.0-1.0); %Eosinophils 0.9 % (0.0-10.0); %Lymphocytes 23.3 % (21.0-51.0); %Monocytes 7.9 % (0.0-10.0); Hemoglobin 14.3 g/dL (14.0-18.0); Mean Corpuscular HGB CONC 32.6 g/dL (32.0-36.0); Mean Corpuscular Volume 95.1 fL (78.0-98.0); Platelet Count 164 thou/uL (130-400); RBC Distribution Width 13.9 % (11.5-14.5); White Blood Cell (WBC) Count 7.5 thou/uL (4.8-10.8)
[2022-06-28 06:34] LABS: ALT (SGPT) 79 U/L (8-55); AST (SGOT) 40 U/L (5-34); Albumin 3.7 g/dL (3.4-4.8); Alkaline Phosphatase 127 U/L (40-110); Anion Gap 14 mmol/L (10-20); BUN (Urea Nitrogen) 55 mg/dL (8.4-25.7); Bilirubin, Total 0.6 mg/dL (0.2-1.2); Calc. Creatinine Clearance 24 mL/min (70-130); Carbon Dioxide 20 mmol/L (23-31); Chloride 121 mmol/L (98-107); Estimated GFR 35; Globulin 3.4 g/dL (2.4-3.5); Glucose 230 mg/dL (83-110); Protein, Total 7.1 g/dL (5.8-8.1); Sodium 151 mmol/L (136-145)
[2022-06-28] MEDS: Aspirin Chewable 81 MG TAB PO SCH (07:26)
[2022-06-28] MEDS ORDERED: Dextrose 5 %-0.45 % NaCl 1,000 ML IV SCH (07:38)
[2022-06-28] MEDS: Enoxaparin Sodium 30 MG/0.3 ML SYRINGE SC SCH (08:33)
[2022-06-28] MEDS: Atorvastatin Calcium 40 MG TAB PO SCH (20:17)
[2022-06-28] MEDS: Pantoprazole 40 MG VIAL IVP SCH (20:17)
[2022-06-29] MEDS: Dextrose 5 %-0.45 % NaCl 1,000 ML IV SCH ×3 (02:41→22:14)
[2022-06-29] MEDS: Aspirin Chewable 81 MG TAB PO SCH (08:42)
[2022-06-29] MEDS: Enoxaparin Sodium 30 MG/0.3 ML SYRINGE SC SCH (08:42)
[2022-06-29] MEDS: Pantoprazole 40 MG VIAL IVP SCH ×2 (08:43→20:36)
[2022-06-29 09:44] LABS: #Eosinphils 0.1 thou/uL (0.0-0.7); #Lymphocytes 1.6 thou/uL (1.20-3.40); #Monocytes 0.5 thou/uL (0.11-0.59); #Neutrophils 5.7 thou/uL (1.40-6.50); %Basophils 0.5 % (0.0-1.0); %Eosinophils 1.6 % (0.0-10.0); %Monocytes 5.6 % (0.0-10.0); %Neutrophils 72.2 % (42.0-75.0); Hemoglobin 12.8 g/dL (14.0-18.0); Mean Corpuscular HGB CONC 33.2 g/dL (32.0-36.0); Mean Corpuscular Hemoglobin 31.3 pg (27.0-31.0); Mean Corpuscular Volume 94.3 fL (78.0-98.0); Mean Platelet Volume 8.6 fL (7.4-10.4); Platelet Count 221 thou/uL (130-400); RBC Distribution Width 13.7 % (11.5-14.5); Red Blood Cell (RBC) Count 4.09 mill/uL (4.70-6.10)
[2022-06-29 10:04] LABS: Anion Gap 12 mmol/L (10-20); BUN (Urea Nitrogen) 33 mg/dL (8.4-25.7); Calc. Creatinine Clearance 28 mL/min (70-130); Calcium 8.5 mg/dL (7.8-10.44); Carbon Dioxide 22 mmol/L (23-31); Chloride 118 mmol/L (98-107); Estimated GFR 41; Glucose 203 mg/dL (83-110); Potassium 3.5 mmol/L (3.5-5.1); Sodium 148 mmol/L (136-145)
[2022-06-29] MEDS ORDERED: PROPOFOL 200 MG/20 ML VIAL ONE (13:43)
[2022-06-29] MEDS ORDERED: ePHEDrine 50 MG/ML VIAL ONE (13:43)
[2022-06-29] MEDS ORDERED: Pancrelipase DR 12,000 1 CAP FS PRN (15:00)
[2022-06-29] MEDS ORDERED: Sodium Bicarbonate Tab 325 MG TAB PER TUBE PRN (15:00)
[2022-06-29] MEDS: Atorvastatin Calcium 40 MG TAB PO SCH (20:36)
[2022-06-29] MEDS: Acetaminophen 325 MG TAB PO PRN (20:36)
[2022-06-30] MEDS: HumaLOG 300 UNITS/3 ML VIAL SC PRN ×3 (05:05→17:40)
[2022-06-30 06:23] LABS: #Eosinphils 0.2 thou/uL (0.0-0.7); #Lymphocytes 1.3 thou/uL (1.20-3.40); #Monocytes 0.4 thou/uL (0.11-0.59); #Neutrophils 6.4 thou/uL (1.40-6.50); %Basophils 0.2 % (0.0-1.0); %Eosinophils 2.3 % (0.0-10.0); %Lymphocytes 15.7 % (21.0-51.0); %Neutrophils 76.8 % (42.0-75.0); Mean Corpuscular HGB CONC 33.2 g/dL (32.0-36.0); Mean Corpuscular Hemoglobin 31.9 pg (27.0-31.0); Mean Corpuscular Volume 95.9 fL (78.0-98.0); Mean Platelet Volume 8.9 fL (7.4-10.4); Platelet Count 201 thou/uL (130-400); RBC Distribution Width 13.8 % (11.5-14.5); Red Blood Cell (RBC) Count 4.09 mill/uL (4.70-6.10); White Blood Cell (WBC) Count 8.3 thou/uL (4.8-10.8)
[2022-06-30] MEDS: Dextrose 5 %-0.45 % NaCl 1,000 ML IV SCH ×2 (06:23→14:05)
[2022-06-30 06:58] LABS: Anion Gap 11 mmol/L (10-20); BUN (Urea Nitrogen) 26 mg/dL (8.4-25.7); Calc. Creatinine Clearance 29 mL/min (70-130); Calcium 8.6 mg/dL (7.8-10.44); Carbon Dioxide 19 mmol/L (23-31); Chloride 117 mmol/L (98-107); Estimated GFR 43; Glucose 248 mg/dL (83-110); Potassium 3.1 mmol/L (3.5-5.1); Sodium 144 mmol/L (136-145)
[2022-06-30] MEDS ORDERED: Magnesium 2 GM/50 ML(in water) 2 GM in Premix Bag 1 BAG IVPB SCH (09:00)
[2022-06-30] MEDS: Aspirin Chewable 81 MG TAB PO SCH (09:29)
[2022-06-30] MEDS: Insulin Glargine 30 UNITS/0.3 ML VIAL SC SCH (09:29)
[2022-06-30] MEDS: Enoxaparin Sodium 30 MG/0.3 ML SYRINGE SC SCH (09:29)
[2022-06-30] MEDS: Pantoprazole 40 MG VIAL IVP SCH ×2 (09:30→21:38)
[2022-06-30] MEDS: Potassium Chloride 20 MEQ TAB PER TUBE SCH (17:40)
[2022-06-30] MEDS: Acetaminophen 325 MG TAB PO PRN (21:38)
[2022-06-30] MEDS: Atorvastatin Calcium 40 MG TAB PO SCH (21:38)
[2022-07-01] MEDS: HumaLOG 300 UNITS/3 ML VIAL SC PRN ×2 (05:46→13:00)
[2022-07-01 06:05] LABS: #Eosinphils 0.4 thou/uL (0.0-0.7); #Lymphocytes 1.5 thou/uL (1.20-3.40); #Monocytes 0.4 thou/uL (0.11-0.59); #Neutrophils 5.6 thou/uL (1.40-6.50); %Basophils 0.3 % (0.0-1.0); %Eosinophils 4.7 % (0.0-10.0); %Lymphocytes 18.8 % (21.0-51.0); %Monocytes 5.5 % (0.0-10.0); %Neutrophils 70.7 % (42.0-75.0); Hemoglobin 11.5 g/dL (14.0-18.0); Mean Corpuscular HGB CONC 32.8 g/dL (32.0-36.0); Mean Corpuscular Volume 94.7 fL (78.0-98.0); Mean Platelet Volume 9.4 fL (7.4-10.4); Platelet Count 186 thou/uL (130-400); RBC Distribution Width 13.7 % (11.5-14.5)
[2022-07-01 06:23] LABS: Anion Gap 11 mmol/L (10-20); BUN (Urea Nitrogen) 27 mg/dL (8.4-25.7); Calc. Creatinine Clearance 31 mL/min (70-130); Calcium 8.5 mg/dL (7.8-10.44); Carbon Dioxide 21 mmol/L (23-31); Chloride 112 mmol/L (98-107); Estimated GFR 47; Glucose 257 mg/dL (83-110); Potassium 3.3 mmol/L (3.5-5.1); Sodium 141 mmol/L (136-145)
[2022-07-01] MEDS: Potassium Chloride 20 MEQ TAB PER TUBE SCH (08:59)
[2022-07-01] MEDS: Aspirin Chewable 81 MG TAB PO SCH (08:59)
[2022-07-01] MEDS: Enoxaparin Sodium 30 MG/0.3 ML SYRINGE SC SCH (08:59)
[2022-07-01] MEDS: Insulin Glargine 30 UNITS/0.3 ML VIAL SC SCH (08:59)
[2022-07-01] MEDS ORDERED: Potassium Bicarbonate/Cit Ac 20 MEQ TAB PER TUBE SCH (09:00)
[2022-07-01] MEDS: Pantoprazole 40 MG VIAL IVP SCH ×2 (09:11→20:49)
[2022-07-01] MEDS: Acetaminophen 325 MG TAB PO PRN (20:49)
[2022-07-01] MEDS: Atorvastatin Calcium 40 MG TAB PO SCH (20:49)
[2022-07-02] MEDS: HumaLOG 300 UNITS/3 ML VIAL SC PRN (06:04)
[2022-07-02 07:25] LABS: #Eosinphils 0.4 thou/uL (0.0-0.7); #Lymphocytes 1.4 thou/uL (1.20-3.40); #Monocytes 0.4 thou/uL (0.11-0.59); #Neutrophils 5.8 thou/uL (1.40-6.50); %Basophils 0.4 % (0.0-1.0); %Eosinophils 4.8 % (0.0-10.0); %Lymphocytes 17.3 % (21.0-51.0); %Monocytes 5.1 % (0.0-10.0); %Neutrophils 72.4 % (42.0-75.0); Hemoglobin 12.4 g/dL (14.0-18.0); Mean Corpuscular HGB CONC 33.3 g/dL (32.0-36.0); Mean Corpuscular Hemoglobin 31.7 pg (27.0-31.0); Mean Corpuscular Volume 95.1 fL (78.0-98.0); Platelet Count 177 thou/uL (130-400); RBC Distribution Width 13.8 % (11.5-14.5)
[2022-07-02 07:37] LABS: Anion Gap 12 mmol/L (10-20); BUN (Urea Nitrogen) 35 mg/dL (8.4-25.7); Calc. Creatinine Clearance 27 mL/min (70-130); Calcium 8.9 mg/dL (7.8-10.44); Carbon Dioxide 24 mmol/L (23-31); Chloride 110 mmol/L (98-107); Estimated GFR 39; Glucose 269 mg/dL (83-110); Sodium 142 mmol/L (136-145)
[2022-07-02] MEDS: Pantoprazole 40 MG VIAL IVP SCH ×2 (08:47→20:17)
[2022-07-02] MEDS: Insulin Glargine 30 UNITS/0.3 ML VIAL SC SCH (08:48)
[2022-07-02] MEDS: Enoxaparin Sodium 30 MG/0.3 ML SYRINGE SC SCH (08:48)
[2022-07-02] MEDS: Aspirin Chewable 81 MG TAB PO SCH (08:48)
[2022-07-02] MEDS ORDERED: Insulin Glargine 30 UNITS/0.3 ML VIAL SC SCH ×2 (15:18→15:30)
[2022-07-02] MEDS: Atorvastatin Calcium 40 MG TAB PO SCH (20:17)
[2022-07-03] MEDS ORDERED: Insulin Glargine 30 UNITS/0.3 ML VIAL SC SCH ×2 (06:00→09:00)
[2022-07-03 07:12] LABS: #Eosinphils 0.3 thou/uL (0.0-0.7); #Lymphocytes 1.8 thou/uL (1.20-3.40); #Monocytes 0.5 thou/uL (0.11-0.59); #Neutrophils 8.6 thou/uL (1.40-6.50); %Basophils 0.3 % (0.0-1.0); %Eosinophils 3.1 % (0.0-10.0); %Lymphocytes 15.6 % (21.0-51.0); %Monocytes 4.4 % (0.0-10.0); %Neutrophils 76.6 % (42.0-75.0); Hemoglobin 13.7 g/dL (14.0-18.0); Mean Corpuscular HGB CONC 33.2 g/dL (32.0-36.0); Mean Corpuscular Hemoglobin 31.3 pg (27.0-31.0); Mean Corpuscular Volume 94.4 fL (78.0-98.0); Mean Platelet Volume 9.8 fL (7.4-10.4); Platelet Count 210 thou/uL (130-400); RBC Distribution Width 13.9 % (11.5-14.5); Red Blood Cell (RBC) Count 4.36 mill/uL (4.70-6.10); White Blood Cell (WBC) Count 11.3 thou/uL (4.8-10.8)
[2022-07-03 07:36] LABS: Anion Gap 12 mmol/L (10-20); BUN (Urea Nitrogen) 29 mg/dL (8.4-25.7); Calc. Creatinine Clearance 36 mL/min (70-130); Calcium 9.2 mg/dL (7.8-10.44); Carbon Dioxide 26 mmol/L (23-31); Chloride 110 mmol/L (98-107); Estimated GFR 56; Glucose 107 mg/dL (83-110); Potassium 3.6 mmol/L (3.5-5.1); Sodium 144 mmol/L (136-145)
[2022-07-03] MEDS: Pantoprazole 40 MG VIAL IVP SCH ×2 (09:26→21:05)
[2022-07-03] MEDS: Enoxaparin Sodium 30 MG/0.3 ML SYRINGE SC SCH (09:26)
[2022-07-03] MEDS: Aspirin Chewable 81 MG TAB PO SCH (09:26)
[2022-07-03] MEDS: Atorvastatin Calcium 40 MG TAB PO SCH (20:55)
[2022-07-03] MEDS ORDERED: Acetaminophen 325 MG TAB PER TUBE PRN (21:45)
[2022-07-03] MEDS ORDERED: Lansoprazole 3 MG/ML ORAL SUSPENSION PER TUBE SCH (21:45)
[2022-07-03] MEDS: Lansoprazole 3 MG/ML ORAL SUSPENSION PER TUBE SCH (22:53)
[2022-07-04 06:29] LABS: #Eosinphils 0.4 thou/uL (0.0-0.7); #Lymphocytes 1.9 thou/uL (1.20-3.40); #Monocytes 0.5 thou/uL (0.11-0.59); #Neutrophils 5.1 thou/uL (1.40-6.50); %Basophils 0.4 % (0.0-1.0); %Eosinophils 4.5 % (0.0-10.0); %Lymphocytes 23.6 % (21.0-51.0); %Monocytes 6.2 % (0.0-10.0); %Neutrophils 65.4 % (42.0-75.0); Hemoglobin 13.6 g/dL (14.0-18.0); Mean Corpuscular HGB CONC 33.9 g/dL (32.0-36.0); Mean Corpuscular Volume 94.2 fL (78.0-98.0); Mean Platelet Volume 9.7 fL (7.4-10.4); Platelet Count 217 thou/uL (130-400); RBC Distribution Width 13.6 % (11.5-14.5); Red Blood Cell (RBC) Count 4.25 mill/uL (4.70-6.10); White Blood Cell (WBC) Count 7.9 thou/uL (4.8-10.8)
[2022-07-04 06:51] LABS: Anion Gap 14 mmol/L (10-20); BUN (Urea Nitrogen) 34 mg/dL (8.4-25.7); Calc. Creatinine Clearance 30 mL/min (70-130); Calcium 9.1 mg/dL (7.8-10.44); Carbon Dioxide 24 mmol/L (23-31); Chloride 108 mmol/L (98-107); Estimated GFR 45; Glucose 186 mg/dL (83-110); Sodium 142 mmol/L (136-145)
[2022-07-04] MEDS: Aspirin Chewable 81 MG TAB PER TUBE SCH (08:26)
[2022-07-04] MEDS: Enoxaparin Sodium 30 MG/0.3 ML SYRINGE SC SCH (08:26)
[2022-07-04] MEDS: Lansoprazole 3 MG/ML ORAL SUSPENSION PER TUBE SCH (08:26)
[2022-07-04] MEDS: HumaLOG 300 UNITS/3 ML VIAL SC PRN ×2 (12:20→17:14)
[2022-07-04] MEDS ORDERED: Atorvastatin Calcium 40 MG TAB PER TUBE SCH (21:00)
[2022-07-05 06:25] LABS: #Eosinphils 0.3 thou/uL (0.0-0.7); #Lymphocytes 1.8 thou/uL (1.20-3.40); #Monocytes 0.5 thou/uL (0.11-0.59); #Neutrophils 5.1 thou/uL (1.40-6.50); %Basophils 0.5 % (0.0-1.0); %Eosinophils 4.2 % (0.0-10.0); %Lymphocytes 23.3 % (21.0-51.0); %Monocytes 6.6 % (0.0-10.0); %Neutrophils 65.4 % (42.0-75.0); Hemoglobin 12.9 g/dL (14.0-18.0); Mean Corpuscular HGB CONC 32.8 g/dL (32.0-36.0); Mean Corpuscular Hemoglobin 30.9 pg (27.0-31.0); Mean Corpuscular Volume 94.2 fL (78.0-98.0); Platelet Count 206 thou/uL (130-400); RBC Distribution Width 13.6 % (11.5-14.5); Red Blood Cell (RBC) Count 4.17 mill/uL (4.70-6.10); White Blood Cell (WBC) Count 7.7 thou/uL (4.8-10.8)
[2022-07-05 06:52] LABS: Anion Gap 13 mmol/L (10-20); BUN (Urea Nitrogen) 45 mg/dL (8.4-25.7); Calc. Creatinine Clearance 25 mL/min (70-130); Calcium 8.6 mg/dL (7.8-10.44); Carbon Dioxide 26 mmol/L (23-31); Chloride 106 mmol/L (98-107); Estimated GFR 36; Glucose 282 mg/dL (83-110); Potassium 4.3 mmol/L (3.5-5.1); Sodium 141 mmol/L (136-145)
[2022-07-05] MEDS: Enoxaparin Sodium 30 MG/0.3 ML SYRINGE SC SCH (08:59)
[2022-07-05] MEDS: Aspirin Chewable 81 MG TAB PER TUBE SCH (08:59)
[2022-07-05] MEDS: Lansoprazole 3 MG/ML ORAL SUSPENSION PER TUBE SCH (11:52)
[2022-07-05] MEDS: HumaLOG 300 UNITS/3 ML VIAL SC PRN ×2 (12:01→17:40)
[2022-07-05 21:10] VITALS: BP 128/78; TEMP 99.1
== END 2022-07-05 21:30 | disposition home or self-care (01) | DRG 57 ==
LOC: T4-A 18:12
PROVIDERS: ADMIT Internal Medicine; ATTEND Internal Medicine
PROC: 0DH63UZ Insertion of Feeding Device into Stomach, Percutaneous Approach (ICD-10-PCS; principal; 2022-06-29)
PROC: 3E0G76Z Introduction of Nutritional Substance into Upper GI, Via Natural or Artificial Opening (ICD-10-PCS; 2022-06-29)
DX: I69.321 Dysphasia following cerebral infarction (principal); I69.354 Hemiplegia and hemiparesis following cerebral infarction affecting left non-dominant side; E87.0 Hyperosmolality and hypernatremia; N17.9 Acute kidney failure, unspecified; R13.12 Dysphagia, oropharyngeal phase; K21.00 Gastro-esophageal reflux disease with esophagitis, without bleeding; E78.5 Hyperlipidemia, unspecified; E11.22 Type 2 diabetes mellitus with diabetic chronic kidney disease; N18.30 Chronic kidney disease, stage 3 unspecified; D63.1 Anemia in chronic kidney disease; R62.7 Adult failure to thrive; R45.1 Restlessness and agitation; I12.9 Hypertensive chronic kidney disease with stage 1 through stage 4 chronic kidney disease, or unspecified chronic kidney disease; Z79.82 Long term (current) use of aspirin; Z79.899 Other long term (current) drug therapy; Z90.49 Acquired absence of other specified parts of digestive tract; Z87.891 Personal history of nicotine dependence; Z68.20 Body mass index [BMI] 20.0-20.9, adult
CPT/HCPCS: 36415; 36416; 80048; 80053; 85025; B4087; C9113; J1630; J1650; J1815; J2704; J3475; J3490; J7042

== ENCOUNTER 2022-07-21 20:28 | Inpatient (IN) | payer OTHER ==
[2022-07-21 20:57] LABS: #Eosinphils 0.1 thou/uL (0.0-0.7); #Lymphocytes 1.4 thou/uL (1.20-3.40); #Monocytes 0.8 thou/uL (0.11-0.59); #Neutrophils 9.6 thou/uL (1.40-6.50); %Basophils 0.1 % (0.0-1.0); %Eosinophils 1.1 % (0.0-10.0); %Lymphocytes 11.4 % (21.0-51.0); %Monocytes 6.5 % (0.0-10.0); %Neutrophils 80.9 % (42.0-75.0); Hemoglobin 15.1 g/dL (14.0-18.0); Mean Corpuscular HGB CONC 32.4 g/dL (32.0-36.0); Mean Corpuscular Hemoglobin 31.6 pg (27.0-31.0); Mean Corpuscular Volume 97.7 fL (78.0-98.0); Mean Platelet Volume 11.3 fL (7.4-10.4); Platelet Count 241 thou/uL (130-400); RBC Distribution Width 13.7 % (11.5-14.5); Red Blood Cell (RBC) Count 4.76 mill/uL (4.70-6.10); White Blood Cell (WBC) Count 11.9 thou/uL (4.8-10.8)
[2022-07-21 21:25] LABS: ALT (SGPT) 222 U/L (8-55); AST (SGOT) 93 U/L (5-34); Albumin 3.6 g/dL (3.4-4.8); Alkaline Phosphatase 176 U/L (40-110); Anion Gap 21 mmol/L (10-20); BUN (Urea Nitrogen) Greater than 125 mg/dL (8.4-25.7); Bilirubin, Total 0.5 mg/dL (0.2-1.2); CK (CPK) 83 U/L (30-200); Calc. Creatinine Clearance 0 mL/min (70-130); Carbon Dioxide 23 mmol/L (23-31); Chloride 123 mmol/L (98-107); Estimated GFR 14; Globulin 4.6 g/dL (2.4-3.5); Glucose 373 mg/dL (83-110); Lipase 106 U/L (8-78); Potassium 5.5 mmol/L (3.5-5.1); Protein, Total 8.2 g/dL (5.8-8.1); Sodium 161 mmol/L (136-145)
[2022-07-21 22:29] LABS: Bacteria/HPF 3+ HPF (None Seen); Bilirubin Negative (Negative); Blood, Urine Negative (Negative); Clarity Clear (Clear); Glucose, Urine (Dipstick) 200 mg/dL (Negative); Ketone, Urine Negative (Negative); Leukocyte 500 Leu/uL (Negative); Nitrite Negative (Negative); Protein, Urine (Dipstick) 30 mg/dL (Neg-Trace); RBC/HPF 0-3 HPF (0-3); Specific Gravity, Urine 1.017 (1.002-1.036); Squamous Epithelial 0-3 HPF (0-3); Urobilinogen Normal mg/dL (Less than 2); pH, Urine 5.5 (5.0-9.0)
[2022-07-21] MEDS ORDERED: Dextrose 5% in Water 1,000 ML IV PRN (22:35)
[2022-07-21] MEDS ORDERED: Ondansetron PF 4 MG/2 ML Vial IVP PRN (22:35)
[2022-07-21] MEDS ORDERED: Dextrose 50% Abboject 50 ML SYRINGE SLOW IVP PRN (22:35)
[2022-07-21] MEDS ORDERED: HumaLOG 300 UNITS/3 ML VIAL SC PRN (22:35)
[2022-07-21] MEDS ORDERED: cefTRIAXone\\ROCEPHIN 1 GM VIAL ONE (22:50)
[2022-07-21] MEDS ORDERED: Cefepime 2 GM in Sodium Chloride 0.9% 100 ML IVPB SCH (23:00)
[2022-07-21] MEDS ORDERED: Insulin Glargine 30 UNITS/0.3 ML VIAL SC SCH (23:00)
[2022-07-21 23:06] LABS: Magnesium 3.6 mg/dL (1.6-2.6)
[2022-07-21 23:25] LABS: SARS-CoV-2 NAA Rapid Test DETECTED (NotDetected)
[2022-07-22] MEDS: Sodium Chloride 0.45% 1,000 ML IV SCH ×3 (03:03→11:48)
[2022-07-22 04:49] LABS: #Eosinphils 0.2 thou/uL (0.0-0.7); #Lymphocytes 1.6 thou/uL (1.20-3.40); #Monocytes 0.8 thou/uL (0.11-0.59); %Eosinophils 1.9 % (0.0-10.0); %Lymphocytes 13.6 % (21.0-51.0); %Monocytes 6.6 % (0.0-10.0); Hemoglobin 13.7 g/dL (14.0-18.0); Mean Corpuscular HGB CONC 30.9 g/dL (32.0-36.0); Mean Corpuscular Hemoglobin 30.7 pg (27.0-31.0); Mean Corpuscular Volume 99.2 fL (78.0-98.0); Mean Platelet Volume 11.2 fL (7.4-10.4); Platelet Count 218 thou/uL (130-400); RBC Distribution Width 13.7 % (11.5-14.5); Red Blood Cell (RBC) Count 4.46 mill/uL (4.70-6.10); White Blood Cell (WBC) Count 11.5 thou/uL (4.8-10.8)
[2022-07-22 05:17] LABS: BUN (Urea Nitrogen) 132 mg/dL (8.4-25.7)
[2022-07-22 05:21] LABS: Free T4 (Free Thyroxine) 1.11 ng/dL (0.70-1.48)
[2022-07-22 05:40] LABS: Anion Gap 17 mmol/L (10-20); Calc. Creatinine Clearance 13 mL/min (70-130); Calcium 9.3 mg/dL (7.8-10.44); Carbon Dioxide 21 mmol/L (23-31); Chloride 129 mmol/L (98-107); Estimated GFR 17; Glucose 233 mg/dL (83-110); Magnesium 3.3 mg/dL (1.6-2.6); Potassium 4.6 mmol/L (3.5-5.1); Sodium 162 mmol/L (136-145)
[2022-07-22] MEDS: HumaLOG 300 UNITS/3 ML VIAL SC PRN (06:33)
[2022-07-22] MEDS: glyBURIDE 5 MG TAB PO SCH (08:27)
[2022-07-22] MEDS: Enoxaparin Sodium 30 MG/0.3 ML SYRINGE SC SCH (08:27)
[2022-07-22] MEDS: Famotidine 20 MG TAB PO SCH (08:27)
[2022-07-22 16:41] LABS: Anion Gap 13 mmol/L (10-20); BUN (Urea Nitrogen) 107 mg/dL (8.4-25.7); Calc. Creatinine Clearance 17 mL/min (70-130); Calcium 7.9 mg/dL (7.8-10.44); Carbon Dioxide 21 mmol/L (23-31); Chloride 121 mmol/L (98-107); Estimated GFR 25; Glucose 151 mg/dL (83-110); Potassium 3.7 mmol/L (3.5-5.1); Sodium 151 mmol/L (136-145)
[2022-07-22] MEDS: Dextrose 5 %-0.45 % NaCl 1,000 ML IV SCH (17:43)
[2022-07-22] MEDS ORDERED: Insulin Glargine 30 UNITS/0.3 ML VIAL SC SCH (21:00)
[2022-07-22] MEDS ORDERED: Melatonin 3 MG TAB PO PRN (21:21)
[2022-07-22] MEDS: Cefepime 1 GM in Sodium Chloride 0.9% 100 ML IVPB SCH (22:31)
[2022-07-22] MEDS: Melatonin 3 MG TAB PER TUBE PRN (22:50)
[2022-07-23 04:50] LABS: Anion Gap 10 mmol/L (10-20); BUN (Urea Nitrogen) 76 mg/dL (8.4-25.7); Calc. Creatinine Clearance 23 mL/min (70-130); Calcium 8.2 mg/dL (7.8-10.44); Carbon Dioxide 22 mmol/L (23-31); Chloride 118 mmol/L (98-107); Estimated GFR 37; Potassium 3.2 mmol/L (3.5-5.1); Sodium 147 mmol/L (136-145)
[2022-07-23 04:57] LABS: Glucose 59 mg/dL (83-110)
[2022-07-23] MEDS: Dextrose 5 %-0.45 % NaCl 1,000 ML IV SCH (05:52)
[2022-07-23] MEDS: glyBURIDE 5 MG TAB PO SCH (08:25)
[2022-07-23] MEDS: Enoxaparin Sodium 30 MG/0.3 ML SYRINGE SC SCH (08:25)
[2022-07-23] MEDS: Famotidine 20 MG TAB PO SCH (08:25)
[2022-07-23] MEDS ORDERED: Dextrose 5 %-0.45 % NaCl 1,000 ML IV SCH (08:37)
[2022-07-23] MEDS: D5 1/2 NS w/20 mEq KCL 1,000 ML IV SCH (10:20)
[2022-07-23 11:20] LABS: ALT (SGPT) 154 U/L (8-55); AST (SGOT) 53 U/L (5-34); Albumin 2.6 g/dL (3.4-4.8); Alkaline Phosphatase 131 U/L (40-110); Bilirubin, Direct 0.2 mg/dL (0.1-0.3); Bilirubin, Total 0.5 mg/dL (0.2-1.2); Protein, Total 5.8 g/dL (5.8-8.1)
[2022-07-23] MEDS ORDERED: Pantoprazole 40 MG VIAL IVP SCH (11:35)
[2022-07-23 12:13] LABS: Hemoglobin 12.8 g/dL (14.0-18.0); Platelet Count 199 thou/uL (130-400)
[2022-07-23] MEDS ORDERED: Polyethylene Glycol 3350 17 GM Packet PO SCH (12:15)
[2022-07-23] MEDS: Pantoprazole 40 MG VIAL IVP SCH (21:02)
[2022-07-23] MEDS: Cefepime 1 GM in Sodium Chloride 0.9% 100 ML IVPB SCH (21:02)
[2022-07-24] MEDS: D5 1/2 NS w/20 mEq KCL 1,000 ML IV SCH ×2 (04:09→17:18)
[2022-07-24 04:49] LABS: #Basophils 0.1 thou/uL (0.0-0.2); #Eosinphils 0.3 thou/uL (0.0-0.7); #Lymphocytes 1.6 thou/uL (1.20-3.40); #Monocytes 0.6 thou/uL (0.11-0.59); #Neutrophils 7.1 thou/uL (1.40-6.50); %Basophils 0.6 % (0.0-1.0); %Eosinophils 2.9 % (0.0-10.0); %Lymphocytes 16.8 % (21.0-51.0); %Monocytes 6.5 % (0.0-10.0); %Neutrophils 73.2 % (42.0-75.0); Hemoglobin 14.1 g/dL (14.0-18.0); Mean Corpuscular HGB CONC 35.7 g/dL (32.0-36.0); Mean Corpuscular Hemoglobin 34.3 pg (27.0-31.0); Mean Platelet Volume 10.5 fL (7.4-10.4); Platelet Count 187 thou/uL (130-400); RBC Distribution Width 13.1 % (11.5-14.5); Red Blood Cell (RBC) Count 4.12 mill/uL (4.70-6.10); White Blood Cell (WBC) Count 9.6 thou/uL (4.8-10.8)
[2022-07-24 05:15] LABS: ALT (SGPT) 118 U/L (8-55); AST (SGOT) 34 U/L (5-34); Albumin 2.8 g/dL (3.4-4.8); Alkaline Phosphatase 132 U/L (40-110); Anion Gap 13 mmol/L (10-20); BUN (Urea Nitrogen) 43 mg/dL (8.4-25.7); Bilirubin, Total 0.6 mg/dL (0.2-1.2); Calc. Creatinine Clearance 25 mL/min (70-130); Calcium 8.6 mg/dL (7.8-10.44); Carbon Dioxide 18 mmol/L (23-31); Chloride 119 mmol/L (98-107); Estimated GFR 39; Globulin 3.5 g/dL (2.4-3.5); Glucose 208 mg/dL (83-110); Potassium 4.5 mmol/L (3.5-5.1); Protein, Total 6.3 g/dL (5.8-8.1); Sodium 145 mmol/L (136-145)
[2022-07-24] MEDS: HumaLOG 300 UNITS/3 ML VIAL SC PRN (06:16)
[2022-07-24] MEDS ORDERED: Insulin Glargine 30 UNITS/0.3 ML VIAL SC SCH (08:30)
[2022-07-24] MEDS ORDERED: Tamsulosin HCl 0.4 MG CAP PO SCH (09:30)
[2022-07-24] MEDS: Pantoprazole 40 MG VIAL IVP SCH ×2 (09:48→22:01)
[2022-07-24] MEDS: Polyethylene Glycol 3350 17 GM Packet PO SCH (09:48)
[2022-07-24 12:29] VITALS: BMI 21.7
[2022-07-24] MEDS ORDERED: Iopamidol 370 76% 100 ML VIAL ONE (14:53)
[2022-07-24] MEDS: cefTRIAXone\\ROCEPHIN 1 GM in Sodium Chloride 0.9% 100 ML IVPB SCH (19:15)
[2022-07-24] MEDS: Insulin Glargine 30 UNITS/0.3 ML VIAL SC SCH (22:00)
[2022-07-24] MEDS: Melatonin 3 MG TAB PER TUBE PRN (22:00)
[2022-07-24] MEDS: ALPRAZolam 0.25 MG TAB PO PRN (22:00)
[2022-07-25] MEDS ORDERED: FLU VACC QS2022-23(6MOS UP)/PF 60 MCG/0.5 ML SYRINGE IM ONE (04:15)
[2022-07-25] MEDS: D5 1/2 NS w/20 mEq KCL 1,000 ML IV SCH (06:28)
[2022-07-25 07:26] LABS: Anion Gap 15 mmol/L (10-20); BUN (Urea Nitrogen) 34 mg/dL (8.4-25.7); Calc. Creatinine Clearance 26 mL/min (70-130); Calcium 8.7 mg/dL (7.8-10.44); Carbon Dioxide 18 mmol/L (23-31); Chloride 120 mmol/L (98-107); Estimated GFR 42; Glucose 110 mg/dL (83-110); Potassium 5.5 mmol/L (3.5-5.1); Sodium 147 mmol/L (136-145)
[2022-07-25] MEDS ORDERED: Dextrose 5 %-0.45 % NaCl 1,000 ML IV SCH ×2 (08:15→15:01)
[2022-07-25] MEDS ORDERED: Tamsulosin HCl 0.4 MG CAP PO SCH (09:09)
[2022-07-25] MEDS: Pantoprazole 40 MG VIAL IVP SCH (09:13)
[2022-07-25] MEDS: Tamsulosin HCl 0.4 MG CAP PO SCH (09:13)
[2022-07-25] MEDS: Polyethylene Glycol 3350 17 GM Packet PO SCH (09:14)
[2022-07-25 14:23] LABS: Anion Gap 13 mmol/L (10-20); BUN (Urea Nitrogen) 31 mg/dL (8.4-25.7); Calc. Creatinine Clearance 28 mL/min (70-130); Calcium 8.4 mg/dL (7.8-10.44); Carbon Dioxide 15 mmol/L (23-31); Chloride 121 mmol/L (98-107); Estimated GFR 45; Glucose 150 mg/dL (83-110); Sodium 144 mmol/L (136-145)
[2022-07-25] MEDS: cefTRIAXone\\ROCEPHIN 1 GM in Sodium Chloride 0.9% 100 ML IVPB SCH (18:03)
[2022-07-25] MEDS: Melatonin 3 MG TAB PER TUBE PRN (22:52)
[2022-07-25] MEDS: Insulin Glargine 30 UNITS/0.3 ML VIAL SC SCH (22:53)
[2022-07-25] MEDS: ALPRAZolam 0.25 MG TAB PO PRN (22:53)
[2022-07-26 06:03] LABS: Anion Gap 12 mmol/L (10-20); BUN (Urea Nitrogen) 29 mg/dL (8.4-25.7); Calc. Creatinine Clearance 28 mL/min (70-130); Calcium 8.3 mg/dL (7.8-10.44); Carbon Dioxide 19 mmol/L (23-31); Chloride 117 mmol/L (98-107); Estimated GFR 46; Glucose 127 mg/dL (83-110); Potassium 5.7 mmol/L (3.5-5.1); Sodium 142 mmol/L (136-145)
[2022-07-26] MEDS ORDERED: Dextrose 50% Abboject 50 ML SYRINGE SLOW IVP PRN (07:51)
[2022-07-26] MEDS ORDERED: Insulin Regular 300 UNITS/3 ML VIAL IVP SCH (08:00)
[2022-07-26] MEDS ORDERED: CALCIUM GLUC 1GM/NS 50ML 1 GM in Premix Bag 1 BAG IVPB SCH (08:15)
[2022-07-26] MEDS ORDERED: Sodium Bicarb 50 MEQ/50 ML Abboject 8.4% SYRINGE IVP SCH (08:30)
[2022-07-26] MEDS: Tamsulosin HCl 0.4 MG CAP PO SCH (08:58)
[2022-07-26] MEDS: Polyethylene Glycol 3350 17 GM Packet PO SCH (09:00)
[2022-07-26 11:27] LABS: Anion Gap 12 mmol/L (10-20); BUN (Urea Nitrogen) 27 mg/dL (8.4-25.7); Calc. Creatinine Clearance 32 mL/min (70-130); Calcium 8.5 mg/dL (7.8-10.44); Carbon Dioxide 19 mmol/L (23-31); Chloride 117 mmol/L (98-107); Estimated GFR 53; Potassium 4.6 mmol/L (3.5-5.1); Sodium 143 mmol/L (136-145)
[2022-07-26 11:33] LABS: Glucose 54 mg/dL (83-110)
[2022-07-26] MEDS: Dextrose 5 %-0.45 % NaCl 1,000 ML IV SCH (12:08)
[2022-07-26] MEDS: Lansoprazole 3 MG/ML ORAL SUSPENSION PER TUBE SCH (12:38)
[2022-07-26] MEDS: cefTRIAXone\\ROCEPHIN 1 GM in Sodium Chloride 0.9% 100 ML IVPB SCH (18:20)
[2022-07-26] MEDS: Insulin Glargine 30 UNITS/0.3 ML VIAL SC SCH (20:00)
[2022-07-27] MEDS: Polyethylene Glycol 3350 17 GM Packet PO SCH (09:47)
[2022-07-27] MEDS: Lansoprazole 3 MG/ML ORAL SUSPENSION PER TUBE SCH (09:47)
[2022-07-27] MEDS: Dextrose 5 %-0.45 % NaCl 1,000 ML IV SCH (09:48)
[2022-07-27] MEDS: Tamsulosin HCl 0.4 MG CAP PO SCH (09:48)
[2022-07-27 12:59] LABS: Anion Gap 13 mmol/L (10-20); BUN (Urea Nitrogen) 19 mg/dL (8.4-25.7); Calc. Creatinine Clearance 35 mL/min (70-130); Carbon Dioxide 17 mmol/L (23-31); Chloride 111 mmol/L (98-107); Estimated GFR 61; Glucose 125 mg/dL (83-110); Potassium 4.2 mmol/L (3.5-5.1); Sodium 137 mmol/L (136-145)
[2022-07-27] MEDS: cefTRIAXone\\ROCEPHIN 1 GM in Sodium Chloride 0.9% 100 ML IVPB SCH (18:20)
[2022-07-27] MEDS: Insulin Glargine 30 UNITS/0.3 ML VIAL SC SCH (20:32)
[2022-07-27] MEDS: Cefdinir 300 MG CAP PO SCH (20:32)
[2022-07-28 08:48] LABS: Anion Gap 12 mmol/L (10-20); BUN (Urea Nitrogen) 24 mg/dL (8.4-25.7); Calc. Creatinine Clearance 30 mL/min (70-130); Calcium 8.5 mg/dL (7.8-10.44); Carbon Dioxide 24 mmol/L (23-31); Chloride 107 mmol/L (98-107); Estimated GFR 51; Glucose 98 mg/dL (83-110); Potassium 5.1 mmol/L (3.5-5.1); Sodium 138 mmol/L (136-145)
[2022-07-28] MEDS: Polyethylene Glycol 3350 17 GM Packet PO SCH (09:27)
[2022-07-28] MEDS: Cefdinir 300 MG CAP PO SCH ×2 (09:27→20:57)
[2022-07-28] MEDS: Tamsulosin HCl 0.4 MG CAP PO SCH (09:27)
[2022-07-28] MEDS: Lansoprazole 3 MG/ML ORAL SUSPENSION PER TUBE SCH (09:27)
[2022-07-28] MEDS: Insulin Glargine 30 UNITS/0.3 ML VIAL SC SCH (21:40)
[2022-07-29 07:06] LABS: Anion Gap 14 mmol/L (10-20); BUN (Urea Nitrogen) 29 mg/dL (8.4-25.7); Calc. Creatinine Clearance 28 mL/min (70-130); Carbon Dioxide 25 mmol/L (23-31); Chloride 107 mmol/L (98-107); Estimated GFR 45; Glucose 139 mg/dL (83-110); Potassium 5.9 mmol/L (3.5-5.1); Sodium 140 mmol/L (136-145)
[2022-07-29] MEDS ORDERED: Insulin Regular 300 UNITS/3 ML VIAL IVP SCH (07:30)
[2022-07-29] MEDS ORDERED: Calcium Gluconate 4.6 MEQ in Sodium Chloride 0.9% 100 ML IVPB ONE (07:38)
[2022-07-29] MEDS ORDERED: CALCIUM GLUC 1GM/NS 50ML 1 GM in Premix Bag 1 BAG IVPB SCH (07:45)
[2022-07-29] MEDS ORDERED: Sodium Bicarb 5 MEQ/10 ML Abboject 4.2% SYRINGE IVP SCH (07:45)
[2022-07-29] MEDS ORDERED: Sodium Bicarb 50 MEQ/50 ML Abboject 8.4% SYRINGE IVP SCH (08:00)
[2022-07-29] MEDS ORDERED: Dextrose 10% in Water 250 ML IV SCH (08:00)
[2022-07-29] MEDS: Tamsulosin HCl 0.4 MG CAP PO SCH (09:23)
[2022-07-29] MEDS: Cefdinir 300 MG CAP PO SCH ×2 (09:23→20:45)
[2022-07-29] MEDS: Polyethylene Glycol 3350 17 GM Packet PO SCH (09:23)
[2022-07-29] MEDS: Lansoprazole 3 MG/ML ORAL SUSPENSION PER TUBE SCH (09:30)
[2022-07-29 12:45] LABS: Anion Gap 16 mmol/L (10-20); BUN (Urea Nitrogen) 27 mg/dL (8.4-25.7); Calc. Creatinine Clearance 30 mL/min (70-130); Calcium 8.7 mg/dL (7.8-10.44); Carbon Dioxide 17 mmol/L (23-31); Chloride 107 mmol/L (98-107); Estimated GFR 51; Glucose 164 mg/dL (83-110); Potassium 5.1 mmol/L (3.5-5.1); Sodium 135 mmol/L (136-145)
[2022-07-29] MEDS: HumaLOG 300 UNITS/3 ML VIAL SC PRN (17:20)
[2022-07-29] MEDS ORDERED: LOKELMA 5 GM PACKET PO SCH (21:00)
[2022-07-30] MEDS: ALPRAZolam 0.25 MG TAB PO PRN (04:06)
[2022-07-30] MEDS: Tamsulosin HCl 0.4 MG CAP PO SCH (08:41)
[2022-07-30] MEDS: Polyethylene Glycol 3350 17 GM Packet PO SCH (08:41)
[2022-07-30] MEDS: Lansoprazole 3 MG/ML ORAL SUSPENSION PER TUBE SCH (08:41)
[2022-07-30] MEDS ORDERED: LOKELMA 5 GM PACKET PO SCH (09:00)
[2022-07-30 09:28] LABS: Anion Gap 12 mmol/L (10-20); BUN (Urea Nitrogen) 27 mg/dL (8.4-25.7); Calc. Creatinine Clearance 29 mL/min (70-130); Calcium 8.8 mg/dL (7.8-10.44); Carbon Dioxide 24 mmol/L (23-31); Chloride 104 mmol/L (98-107); Estimated GFR 49; Glucose 196 mg/dL (83-110); Potassium 4.2 mmol/L (3.5-5.1); Sodium 136 mmol/L (136-145)
[2022-07-30] MEDS: HumaLOG 300 UNITS/3 ML VIAL SC PRN (12:03)
[2022-07-31] MEDS: HumaLOG 300 UNITS/3 ML VIAL SC PRN ×3 (05:43→17:34)
[2022-07-31 06:48] LABS: Anion Gap 13 mmol/L (10-20); BUN (Urea Nitrogen) 36 mg/dL (8.4-25.7); Calc. Creatinine Clearance 28 mL/min (70-130); Calcium 8.6 mg/dL (7.8-10.44); Carbon Dioxide 23 mmol/L (23-31); Chloride 103 mmol/L (98-107); Estimated GFR 47; Glucose 203 mg/dL (83-110); Sodium 135 mmol/L (136-145)
[2022-07-31] MEDS: Lansoprazole 3 MG/ML ORAL SUSPENSION PER TUBE SCH (08:59)
[2022-07-31] MEDS: Tamsulosin HCl 0.4 MG CAP PO SCH (08:59)
[2022-07-31] MEDS: Polyethylene Glycol 3350 17 GM Packet PO SCH (08:59)
[2022-07-31] MEDS: ALPRAZolam 0.25 MG TAB PO PRN (22:08)
[2022-07-31] MEDS: Melatonin 3 MG TAB PER TUBE PRN (22:08)
[2022-08-01 06:39] LABS: #Eosinphils 0.3 thou/uL (0.0-0.7); #Lymphocytes 1.8 thou/uL (1.20-3.40); #Monocytes 0.5 thou/uL (0.11-0.59); #Neutrophils 6.7 thou/uL (1.40-6.50); %Basophils 0.5 % (0.0-1.0); %Eosinophils 3.7 % (0.0-10.0); %Lymphocytes 19.5 % (21.0-51.0); %Monocytes 5.5 % (0.0-10.0); %Neutrophils 70.9 % (42.0-75.0); Hemoglobin 12.1 g/dL (14.0-18.0); Mean Corpuscular HGB CONC 32.8 g/dL (32.0-36.0); Mean Corpuscular Hemoglobin 30.6 pg (27.0-31.0); Mean Corpuscular Volume 93.3 fL (78.0-98.0); Mean Platelet Volume 9.2 fL (7.4-10.4); Platelet Count 217 thou/uL (130-400); RBC Distribution Width 13.4 % (11.5-14.5); Red Blood Cell (RBC) Count 3.96 mill/uL (4.70-6.10); White Blood Cell (WBC) Count 9.4 thou/uL (4.8-10.8)
[2022-08-01 06:54] LABS: Phosphorus 3.4 mg/dL (2.3-4.7)
[2022-08-01 07:03] LABS: ALT (SGPT) 56 U/L (8-55); AST (SGOT) 25 U/L (5-34); Albumin 3.1 g/dL (3.4-4.8); Alkaline Phosphatase 106 U/L (40-110); Anion Gap 15 mmol/L (10-20); BUN (Urea Nitrogen) 38 mg/dL (8.4-25.7); Bilirubin, Total 0.4 mg/dL (0.2-1.2); Calc. Creatinine Clearance 28 mL/min (70-130); Calcium 9.1 mg/dL (7.8-10.44); Carbon Dioxide 26 mmol/L (23-31); Chloride 103 mmol/L (98-107); Estimated GFR 47; Globulin 3.7 g/dL (2.4-3.5); Glucose 144 mg/dL (83-110); Magnesium 2.3 mg/dL (1.6-2.6); Potassium 4.7 mmol/L (3.5-5.1); Protein, Total 6.8 g/dL (5.8-8.1); Sodium 139 mmol/L (136-145)
[2022-08-01] MEDS: Polyethylene Glycol 3350 17 GM Packet PO SCH (09:08)
[2022-08-01] MEDS: Tamsulosin HCl 0.4 MG CAP PO SCH (09:09)
[2022-08-01] MEDS: Lansoprazole 3 MG/ML ORAL SUSPENSION PER TUBE SCH (09:09)
[2022-08-01] MEDS: HumaLOG 300 UNITS/3 ML VIAL SC PRN ×2 (12:23→17:16)
[2022-08-01] MEDS: Melatonin 3 MG TAB PER TUBE PRN (22:29)
[2022-08-02] MEDS: HumaLOG 300 UNITS/3 ML VIAL SC PRN ×3 (04:57→16:45)
[2022-08-02 06:39] LABS: Anion Gap 13 mmol/L (10-20); BUN (Urea Nitrogen) 36 mg/dL (8.4-25.7); Calc. Creatinine Clearance 33 mL/min (70-130); Calcium 8.8 mg/dL (7.8-10.44); Carbon Dioxide 25 mmol/L (23-31); Chloride 103 mmol/L (98-107); Estimated GFR 56; Glucose 177 mg/dL (83-110); Potassium 3.8 mmol/L (3.5-5.1); Sodium 137 mmol/L (136-145)
[2022-08-02] MEDS: Lansoprazole 3 MG/ML ORAL SUSPENSION PER TUBE SCH (08:08)
[2022-08-02] MEDS: Polyethylene Glycol 3350 17 GM Packet PO SCH (08:08)
[2022-08-02] MEDS: Tamsulosin HCl 0.4 MG CAP PO SCH (08:08)
[2022-08-03] MEDS: HumaLOG 300 UNITS/3 ML VIAL SC PRN ×3 (05:02→17:08)
[2022-08-03 06:24] LABS: #Basophils 0.1 thou/uL (0.0-0.2); #Eosinphils 0.4 thou/uL (0.0-0.7); #Lymphocytes 1.9 thou/uL (1.20-3.40); #Monocytes 0.5 thou/uL (0.11-0.59); #Neutrophils 4.9 thou/uL (1.40-6.50); %Basophils 0.8 % (0.0-1.0); %Eosinophils 4.6 % (0.0-10.0); %Monocytes 6.5 % (0.0-10.0); %Neutrophils 63.2 % (42.0-75.0); Hemoglobin 12.1 g/dL (14.0-18.0); Mean Corpuscular Volume 93.9 fL (78.0-98.0); Mean Platelet Volume 9.2 fL (7.4-10.4); Platelet Count 226 thou/uL (130-400); RBC Distribution Width 13.4 % (11.5-14.5); Red Blood Cell (RBC) Count 4.03 mill/uL (4.70-6.10); White Blood Cell (WBC) Count 7.8 thou/uL (4.8-10.8)
[2022-08-03 06:25] LABS: ALT (SGPT) 61 U/L (8-55); AST (SGOT) 35 U/L (5-34); Albumin 2.8 g/dL (3.4-4.8); Alkaline Phosphatase 104 U/L (40-110); Anion Gap 13 mmol/L (10-20); BUN (Urea Nitrogen) 35 mg/dL (8.4-25.7); Bilirubin, Total 0.3 mg/dL (0.2-1.2); Calc. Creatinine Clearance 33 mL/min (70-130); Calcium 8.6 mg/dL (7.8-10.44); Carbon Dioxide 25 mmol/L (23-31); Chloride 101 mmol/L (98-107); Estimated GFR 56; Globulin 3.3 g/dL (2.4-3.5); Glucose 182 mg/dL (83-110); Magnesium 2.2 mg/dL (1.6-2.6); Protein, Total 6.1 g/dL (5.8-8.1); Sodium 135 mmol/L (136-145)
[2022-08-03 06:26] LABS: Phosphorus 2.9 mg/dL (2.3-4.7)
[2022-08-03] MEDS: Tamsulosin HCl 0.4 MG CAP PO SCH (10:01)
[2022-08-03] MEDS: Polyethylene Glycol 3350 17 GM Packet PO SCH (10:01)
[2022-08-03] MEDS: Lansoprazole 3 MG/ML ORAL SUSPENSION PER TUBE SCH (10:01)
[2022-08-04 06:38] LABS: #Basophils 0.1 thou/uL (0.0-0.2); #Eosinphils 0.4 thou/uL (0.0-0.7); #Lymphocytes 2.2 thou/uL (1.20-3.40); #Monocytes 0.6 thou/uL (0.11-0.59); #Neutrophils 5.3 thou/uL (1.40-6.50); %Basophils 0.7 % (0.0-1.0); %Eosinophils 4.7 % (0.0-10.0); %Lymphocytes 25.3 % (21.0-51.0); %Monocytes 6.9 % (0.0-10.0); %Neutrophils 62.4 % (42.0-75.0); Hemoglobin 12.4 g/dL (14.0-18.0); Mean Corpuscular HGB CONC 32.5 g/dL (32.0-36.0); Mean Corpuscular Hemoglobin 30.3 pg (27.0-31.0); Mean Corpuscular Volume 93.3 fL (78.0-98.0); Mean Platelet Volume 9.1 fL (7.4-10.4); Platelet Count 245 thou/uL (130-400); RBC Distribution Width 13.2 % (11.5-14.5); White Blood Cell (WBC) Count 8.5 thou/uL (4.8-10.8)
[2022-08-04 07:24] LABS: ALT (SGPT) 83 U/L (8-55); AST (SGOT) 53 U/L (5-34); Alkaline Phosphatase 113 U/L (40-110); Anion Gap 12 mmol/L (10-20); BUN (Urea Nitrogen) 37 mg/dL (8.4-25.7); Bilirubin, Total 0.3 mg/dL (0.2-1.2); Calc. Creatinine Clearance 32 mL/min (70-130); Calcium 9.1 mg/dL (7.8-10.44); Carbon Dioxide 26 mmol/L (23-31); Chloride 101 mmol/L (98-107); Estimated GFR 55; Globulin 3.7 g/dL (2.4-3.5); Glucose 196 mg/dL (83-110); Potassium 3.9 mmol/L (3.5-5.1); Protein, Total 6.7 g/dL (5.8-8.1); Sodium 135 mmol/L (136-145)
[2022-08-04] MEDS ORDERED: ALPRAZolam 0.25 MG TAB PO PRN (07:26)
[2022-08-04] MEDS: Polyethylene Glycol 3350 17 GM Packet PO SCH (09:35)
[2022-08-04] MEDS: Lansoprazole 3 MG/ML ORAL SUSPENSION PO SCH (09:35)
[2022-08-04] MEDS: Tamsulosin HCl 0.4 MG CAP PO SCH (09:36)
[2022-08-04] MEDS: HumaLOG 300 UNITS/3 ML VIAL SC PRN ×2 (11:21→18:17)
[2022-08-04] MEDS: Melatonin 3 MG TAB PER TUBE PRN (21:56)
[2022-08-05 06:01] LABS: #Basophils 0.1 thou/uL (0.0-0.2); #Eosinphils 0.2 thou/uL (0.0-0.7); #Lymphocytes 1.6 thou/uL (1.20-3.40); #Monocytes 0.5 thou/uL (0.11-0.59); #Neutrophils 5.4 thou/uL (1.40-6.50); %Basophils 0.7 % (0.0-1.0); %Eosinophils 2.9 % (0.0-10.0); %Lymphocytes 20.6 % (21.0-51.0); %Monocytes 6.3 % (0.0-10.0); %Neutrophils 69.5 % (42.0-75.0); Hemoglobin 12.3 g/dL (14.0-18.0); Mean Corpuscular HGB CONC 34.3 g/dL (32.0-36.0); Mean Corpuscular Hemoglobin 31.9 pg (27.0-31.0); Mean Corpuscular Volume 93.1 fL (78.0-98.0); Mean Platelet Volume 8.8 fL (7.4-10.4); Platelet Count 232 thou/uL (130-400); Red Blood Cell (RBC) Count 3.86 mill/uL (4.70-6.10); White Blood Cell (WBC) Count 7.8 thou/uL (4.8-10.8)
[2022-08-05 06:27] LABS: Anion Gap 11 mmol/L (10-20); BUN (Urea Nitrogen) 39 mg/dL (8.4-25.7); Calc. Creatinine Clearance 32 mL/min (70-130); Carbon Dioxide 26 mmol/L (23-31); Chloride 100 mmol/L (98-107); Estimated GFR 54; Glucose 227 mg/dL (83-110); Sodium 133 mmol/L (136-145)
[2022-08-05] MEDS: Sodium Chloride 0.9% 1,000 ML IV SCH ×2 (09:51→17:24)
[2022-08-05] MEDS: Tamsulosin HCl 0.4 MG CAP PO SCH (09:52)
[2022-08-05] MEDS: Polyethylene Glycol 3350 17 GM Packet PO SCH (09:52)
[2022-08-05] MEDS: HumaLOG 300 UNITS/3 ML VIAL SC PRN (09:53)
[2022-08-05] MEDS: Lansoprazole 3 MG/ML ORAL SUSPENSION PO SCH (09:53)
[2022-08-05] MEDS: Melatonin 3 MG TAB PER TUBE PRN (21:37)
[2022-08-06] MEDS: Sodium Chloride 0.9% 1,000 ML IV SCH ×3 (03:21→22:04)
[2022-08-06 05:52] LABS: Hemoglobin 11.4 g/dL (14.0-18.0); Mean Corpuscular HGB CONC 32.3 g/dL (32.0-36.0); Mean Corpuscular Hemoglobin 30.3 pg (27.0-31.0); Mean Corpuscular Volume 93.6 fL (78.0-98.0); Mean Platelet Volume 9.1 fL (7.4-10.4); Platelet Count 239 thou/uL (130-400); Red Blood Cell (RBC) Count 3.76 mill/uL (4.70-6.10); White Blood Cell (WBC) Count 7.1 thou/uL (4.8-10.8)
[2022-08-06 05:59] LABS: Anion Gap 12 mmol/L (10-20); BUN (Urea Nitrogen) 33 mg/dL (8.4-25.7); Calc. Creatinine Clearance 38 mL/min (70-130); Calcium 8.3 mg/dL (7.8-10.44); Carbon Dioxide 24 mmol/L (23-31); Chloride 105 mmol/L (98-107); Estimated GFR 66; Glucose 185 mg/dL (83-110); Potassium 3.8 mmol/L (3.5-5.1); Sodium 137 mmol/L (136-145)
[2022-08-06] MEDS: Polyethylene Glycol 3350 17 GM Packet PO SCH (10:47)
[2022-08-06] MEDS: Lansoprazole 3 MG/ML ORAL SUSPENSION PO SCH (10:47)
[2022-08-06] MEDS: Tamsulosin HCl 0.4 MG CAP PO SCH (10:47)
[2022-08-06] MEDS: HumaLOG 300 UNITS/3 ML VIAL SC PRN (12:56)
[2022-08-06] MEDS: Melatonin 3 MG TAB PER TUBE PRN (21:57)
[2022-08-07 06:10] LABS: Hemoglobin 12.1 g/dL (14.0-18.0); Mean Corpuscular HGB CONC 32.8 g/dL (32.0-36.0); Mean Corpuscular Hemoglobin 30.4 pg (27.0-31.0); Mean Corpuscular Volume 92.8 fL (78.0-98.0); Platelet Count 249 thou/uL (130-400); RBC Distribution Width 12.9 % (11.5-14.5); Red Blood Cell (RBC) Count 3.96 mill/uL (4.70-6.10); White Blood Cell (WBC) Count 6.3 thou/uL (4.8-10.8)
[2022-08-07 06:57] LABS: Anion Gap 11 mmol/L (10-20); BUN (Urea Nitrogen) 26 mg/dL (8.4-25.7); Calc. Creatinine Clearance 42 mL/min (70-130); Calcium 8.3 mg/dL (7.8-10.44); Carbon Dioxide 22 mmol/L (23-31); Chloride 111 mmol/L (98-107); Estimated GFR 74; Glucose 168 mg/dL (83-110); Potassium 3.6 mmol/L (3.5-5.1); Sodium 140 mmol/L (136-145)
[2022-08-07] MEDS: Tamsulosin HCl 0.4 MG CAP PO SCH (08:46)
[2022-08-07] MEDS: Lansoprazole 3 MG/ML ORAL SUSPENSION PO SCH (08:46)
[2022-08-07] MEDS: Polyethylene Glycol 3350 17 GM Packet PO SCH (08:46)
[2022-08-07] MEDS: Sodium Chloride 0.9% 1,000 ML IV SCH ×2 (08:47→17:35)
[2022-08-07] MEDS: HumaLOG 300 UNITS/3 ML VIAL SC PRN (17:31)
[2022-08-07] MEDS: Melatonin 3 MG TAB PER TUBE PRN (20:38)
[2022-08-08] MEDS: Sodium Chloride 0.9% 1,000 ML IV SCH ×3 (03:54→23:45)
[2022-08-08] MEDS: Lansoprazole 3 MG/ML ORAL SUSPENSION PO SCH (08:47)
[2022-08-08] MEDS: Polyethylene Glycol 3350 17 GM Packet PO SCH (08:47)
[2022-08-08] MEDS: Tamsulosin HCl 0.4 MG CAP PO SCH (08:48)
[2022-08-08 20:11] VITALS: BP 168/86; TEMP 98.9
[2022-08-09] MEDS: Tamsulosin HCl 0.4 MG CAP PO SCH (08:40)
[2022-08-09] MEDS: Polyethylene Glycol 3350 17 GM Packet PO SCH (08:44)
[2022-08-09] MEDS ORDERED: Lansoprazole 15 MG/5 ML (BATCHED)UDCUP PO SCH (09:00)
[2022-08-09] MEDS: Sodium Chloride 0.9% 1,000 ML IV SCH (11:16)
== END 2022-08-09 17:48 | disposition home or self-care (01) | DRG 871 ==
LOC: ERS 20:28 → 2NO 22:28 → T4-A 07-24 19:15
PROVIDERS: ADMIT Internal Medicine; ATTEND Internal Medicine
PROC: 8E0ZXY6 Isolation (ICD-10-PCS; principal; 2022-07-21)
PROC: 3E03329 Introduction of Other Anti-infective into Peripheral Vein, Percutaneous Approach (ICD-10-PCS; 2022-07-21)
DX: A41.59 Other Gram-negative sepsis (principal); U07.1 COVID-19; N17.9 Acute kidney failure, unspecified; E87.0 Hyperosmolality and hypernatremia; I69.954 Hemiplegia and hemiparesis following unspecified cerebrovascular disease affecting left non-dominant side; N39.0 Urinary tract infection, site not specified; E78.5 Hyperlipidemia, unspecified; E86.0 Dehydration; E11.22 Type 2 diabetes mellitus with diabetic chronic kidney disease; N18.32 Chronic kidney disease, stage 3b; I12.9 Hypertensive chronic kidney disease with stage 1 through stage 4 chronic kidney disease, or unspecified chronic kidney disease; K21.00 Gastro-esophageal reflux disease with esophagitis, without bleeding; E11.65 Type 2 diabetes mellitus with hyperglycemia; R13.10 Dysphagia, unspecified; E87.5 Hyperkalemia; Z79.82 Long term (current) use of aspirin; Z79.84 Long term (current) use of oral hypoglycemic drugs; Z79.899 Other long term (current) drug therapy; Z90.49 Acquired absence of other specified parts of digestive tract; Z87.891 Personal history of nicotine dependence; Z78.1 Physical restraint status; I69.991 Dysphagia following unspecified cerebrovascular disease
CPT/HCPCS: 36415; 36416; 70487; 71045; 80048; 80053; 80076; 81003; 81015; 82010; 82140; 82550; 83605; 83690; 83735; 84100; 84439; 84443; 84481; 84484; 85014; 85018; 85025; 85027; 85049; 86140; 87040; 87077; 87086; 87149; 87186; 93005; 93010; 96374; C9113; J0610; J0692; J0696; J1650; J1815; J2405; J3480; J3490; J7042; J7050; Q9967; U0002

== ENCOUNTER 2023-07-05 | Inpatient (IN) | payer MEDICARE, OTHER ==
[2023-07-06] MEDS ORDERED: EPINEPHrine 1 MG/10 ML Abboject SYRINGE ONE (00:11)
[2023-07-06] MEDS ORDERED: Sodium Bicarb 50 MEQ/50 ML Abboject 8.4% SYRINGE ONE (00:11)
[2023-07-06] MEDS ORDERED: Rocuronium Bromide 10 MG/ML (10ML VIAL) ONE (00:11)
[2023-07-06] MEDS ORDERED: fentaNYL 50 mcg/mL 1 mL Vial ONE (00:15)
[2023-07-06] MEDS ORDERED: Propofol 1,000 MG/100 ML VIAL IV ONE (00:21)
[2023-07-06] MEDS ORDERED: NOREPINEPHRINE 8 MG/250 ML-D5W 250 ML ONE (00:21)
[2023-07-06 00:39] LABS: Actual Bicarbonate (HCO3a) 18.2 mEq/L (22-28); Analyzer IN Cardio ER; Base Excess (BEa) -7.2 mEq/L (-2.0 to +3.0); CO2 Tension 36.3 mmHg (35.0-45.0); Calcium, Ionized (arterial) 1.08 mmol/L (1.12-1.30); Hematocrit-ABG 43 % (42.0-52.0); Hemoglobin (Hb) 14.6 g/dL (14.0-18.0); O2 Tension (PaO2), arterial 64.6 mmHg (> 60.0); pH, Arterial 7.317 (7.35-7.45)
[2023-07-06 00:40] LABS: Potassium - ABG Lab 2.61 mmol/L (3.70-5.30); Puncture Site RBA
[2023-07-06 00:41] LABS: ALV-art Gradient 603.025 mmHg (0-20)
[2023-07-06 00:43] LABS: Hematocrit 45.2 % (42.0-52.0); Hemoglobin 14.8 g/dL (14.0-18.0); Mean Corpuscular HGB CONC 32.7 g/dL (32.0-36.0); Mean Corpuscular Volume 91.5 fl (78.0-98.0); Mean Platelet Volume 12.9 fL (7.4-10.4); Platelet Count 194 10x3/uL (130-400); RBC Distribution Width 14.9 % (11.5-14.5); Red Blood Cell (RBC) Count 4.94 mill/uL (4.70-6.10); White Blood Cell (WBC) Count 6.2 10x3/uL (4.8-10.8)
[2023-07-06 00:48] LABS: Delete Auto Diff?? YES; Manual Diff?? YES
[2023-07-06 00:55] LABS: INR-International Normal Ratio 1.4; PTT 27.2 sec (22.9-36.1); Prothrombin Time 17.4 sec (12.0-14.7)
[2023-07-06 01:05] LABS: ALT (SGPT) 195 U/L (8-55); AST (SGOT) 51 U/L (5-34); Albumin 3.2 g/dL (3.4-4.8); Alkaline Phosphatase 91 U/L (40-110); Anion Gap 20 mmol/L (10-20); Bilirubin, Total 1.2 mg/dL (0.2-1.2); CK (CPK) 399 U/L (30-200); Calc. Creatinine Clearance 0 mL/min (70-130); Calcium 8.6 mg/dL (7.8-10.44); Carbon Dioxide 16 mmol/L (23-31); Chloride 121 mmol/L (98-107); Estimated GFR 18; Globulin 3.4 g/dL (2.4-3.5); Lipase 128 U/L (8-78); Magnesium 2.5 mg/dL (1.6-2.6); Potassium 3.3 mmol/L (3.5-5.1); Protein, Total 6.6 g/dL (5.8-8.1)
[2023-07-06 01:08] LABS: Band 42 % (5-11); CellaVision Operator ID LAB.CLH1; Eosinophils 1 % (0-10); Large Platelets 1.9 % (0-5); Lymphocytes 7 % (21-51); Metamyelocyte 2 % (0-0); Monocytes 7 % (0-10); Neutrophil 42 % (42-75); Platelet Adequacy Comment Platelets Normal; Polychromasia SLIGHT = 2-3 cells HPF (0-2); Total Cell Count 103
[2023-07-06 01:18] LABS: BUN (Urea Nitrogen) 154 mg/dL (8.4-25.7)
[2023-07-06 01:19] LABS: Glucose 566 mg/dL (83-110); Sodium 154 mmol/L (136-145)
[2023-07-06] MEDS ORDERED: Vancomycin 1 GM/200 ML (FROZEN) BAG ONE (01:34)
[2023-07-06] MEDS ORDERED: Cefepime 2 GM VIAL ONE (01:34)
[2023-07-06] MEDS ORDERED: Acetaminophen 650 MG Suppository ONE (01:37)
[2023-07-06] MEDS ORDERED: INSULIN REGULAR IN 0.9 % NACL 100 UNITS/100 ML BAG ONE (01:52)
[2023-07-06 01:57] LABS: Bacteria/HPF None Seen HPF (None Seen); Bilirubin Negative (Negative); Blood, Urine Trace (Negative); CAUTI Indications for Culture Alt mental st,lethar; Clarity Clear (Clear); Glucose, Urine (Dipstick) Greater than 1000 mg/dL (Negative); Ketone, Urine Negative (Negative); Leukocyte Negative Leu/uL (Negative); Nitrite Negative (Negative); Protein, Urine (Dipstick) 30 mg/dL (Neg-Trace); RBC/HPF 0-3 HPF (0-3); Specific Gravity, Urine 1.014 (1.002-1.036); Squamous Epithelial 0-3 HPF (0-3); Urobilinogen Normal mg/dL (Less than 2); WBC/HPF 0-3 HPF (0-3)
[2023-07-06 01:59] LABS: Urine Culture Reflex No No
[2023-07-06] MEDS ORDERED: NS 0.9% w/ 40 MEQ KCL 1,000 ML IV SCH (02:00)
[2023-07-06] MEDS ORDERED: Sodium Chloride 0.45% 1,000 ML IV SCH ×2 (02:45→03:15)
[2023-07-06] MEDS ORDERED: Acetaminophen 650 MG Suppository PR PRN ×2 (02:47→03:33)
[2023-07-06 02:59] LABS: SARS-CoV-2 NAA Rapid Test Not Detected (NotDetected)
[2023-07-06] MEDS ORDERED: Ventilator Sedation Protocol 1 EACH FS SCH (02:59)
[2023-07-06 03:10] LABS: ALT (SGPT) 165 U/L (8-55); AST (SGOT) 45 U/L (5-34); Albumin 2.8 g/dL (3.4-4.8); Alkaline Phosphatase 79 U/L (40-110); Anion Gap 18 mmol/L (10-20); Bilirubin, Total 0.8 mg/dL (0.2-1.2); Calc. Creatinine Clearance 0 mL/min (70-130); Calcium 8.2 mg/dL (7.8-10.44); Carbon Dioxide 19 mmol/L (23-31); Chloride 124 mmol/L (98-107); Estimated GFR 18; Potassium 2.9 mmol/L (3.5-5.1); Protein, Total 5.8 g/dL (5.8-8.1)
[2023-07-06] MEDS ORDERED: Dextrose 50% Abboject 50 ML SYRINGE SLOW IVP PRN (03:13)
[2023-07-06] MEDS ORDERED: HumaLOG 300 UNITS/3 ML VIAL SC PRN (03:13)
[2023-07-06] MEDS ORDERED: Glucagon 1 MG/ML KIT IM PRN (03:13)
[2023-07-06] MEDS ORDERED: Dextrose 5% in Water 1,000 ML IV PRN (03:13)
[2023-07-06] MEDS ORDERED: Morphine 2 MG/ML VIAL SLOW IVP PRN (03:15)
[2023-07-06] MEDS ORDERED: DISCONTINUE PREVIOUS NARCOTIC PAIN MEDICATIONS AND BENZODIAZEPINES FS SCH (03:15)
[2023-07-06] MEDS ORDERED: Fentanyl BOLUS 250 ML IVPB PRN (03:15)
[2023-07-06] MEDS ORDERED: Propofol 1,000 MG/100 ML VIAL IV PRN (03:15)
[2023-07-06] MEDS ORDERED: Propofol BOLUS 1,000 MG/100 ML VIAL IV PRN (03:15)
[2023-07-06 03:16] LABS: Glucose 426 mg/dL (83-110); Sodium 158 mmol/L (136-145)
[2023-07-06 03:21] LABS: BUN (Urea Nitrogen) 150 mg/dL (8.4-25.7)
[2023-07-06] MEDS ORDERED: Metoclopramide HCl 10 MG/2 ML VIAL IVP PRN ×2 (03:33→03:51)
[2023-07-06] MEDS ORDERED: Acetaminophen 650 MG/20.3 ML UDCUP PER TUBE PRN (03:37)
[2023-07-06] MEDS ORDERED: Lactated Ringer's 1,000 ML IV SCH ×3 (03:45→04:00)
[2023-07-06 04:33] LABS: Actual Bicarbonate (HCO3a) 16.2 mEq/L (22-28); Base Excess (BEa) -8.9 mEq/L (-2.0 to +3.0); CO2 Tension 33.3 mmHg (35.0-45.0); Calcium, Ionized (arterial) 1.18 mmol/L (1.12-1.30); Carboxyhemoglobin (COHb) 0.7 gm% (0.0-3.0); Hematocrit-ABG 46 % (42.0-52.0); Hemoglobin (Hb) 15.8 g/dL (14.0-18.0); O2 Tension (PaO2), arterial 74.2 mmHg (> 60.0); Potassium - ABG Lab 3.11 mmol/L (3.70-5.30); pH, Arterial 7.306 (7.35-7.45)
[2023-07-06] MEDS: Potassium Chloride 20 MEQ in Premix Bag 1 BAG IVPB SCH ×5 (04:36→09:15)
[2023-07-06 04:39] LABS: ALV-art Gradient 525.875 mmHg (0-20); Puncture Site RRA
[2023-07-06] MEDS: metroNIDAZOLE 500 MG in Premix Bag 1 BAG IVPB SCH ×3 (04:49→20:52)
[2023-07-06] MEDS: Fentanyl CADD 100 ML IV SCH (05:02)
[2023-07-06] MEDS ORDERED: Lactated Ringer's 500 ML IV SCH ×2 (05:15→07:00)
[2023-07-06] MEDS ORDERED: Albumin 25% 25 GM/100 ML BOT IVPB SCH (05:15)
[2023-07-06 05:38] LABS: #Neutrophils 5.7 thou/uL (1.40-6.50); %Basophils 0.3 % (0.0-1.0); %Lymphocytes 13.3 % (21.0-51.0); %Neutrophils 73.1 % (42.0-75.0); Hematocrit 46.8 % (42.0-52.0); Hemoglobin 14.9 g/dL (14.0-18.0); Mean Corpuscular HGB CONC 31.8 g/dL (32.0-36.0); Mean Corpuscular Hemoglobin 30.5 pg (27.0-31.0); Mean Platelet Volume 12.9 fL (7.4-10.4); Platelet Count 174 10x3/uL (130-400); RBC Distribution Width 15.4 % (11.5-14.5); Red Blood Cell (RBC) Count 4.88 mill/uL (4.70-6.10); White Blood Cell (WBC) Count 7.8 10x3/uL (4.8-10.8)
[2023-07-06 05:40] LABS: Mean Corpuscular Volume 95.9 fl (78.0-98.0)
[2023-07-06] MEDS ORDERED: Dextrose 5%-Lactated Ringers 1,000 ML IV SCH (05:45)
[2023-07-06 05:54] LABS: Lactic Acid 5.3 mmol/L (0.5-2.2)
[2023-07-06 05:59] LABS: Hemoglobin A1c 7.3 % (4.0-6.0)
[2023-07-06 06:03] LABS: Anion Gap 20 mmol/L (10-20); Calc. Creatinine Clearance 0 mL/min (70-130); Carbon Dioxide 14 mmol/L (23-31); Chloride 127 mmol/L (98-107); Estimated GFR 19; Glucose 216 mg/dL (83-110); Potassium 3.2 mmol/L (3.5-5.1)
[2023-07-06 06:08] LABS: Troponin I 0.091 ng/mL (< 0.028)
[2023-07-06 06:12] LABS: Sodium 158 mmol/L (136-145)
[2023-07-06 06:15] LABS: BUN (Urea Nitrogen) 131 mg/dL (8.4-25.7)
[2023-07-06] MEDS ORDERED: Vancomycin Dose by Levels Sliding Scale (Wt <71) FS SCH (06:45)
[2023-07-06] MEDS ORDERED: Sodium Bicarbonate 100 MEQ in Dextrose 5% in Water 1,000 ML IV SCH (07:30)
[2023-07-06] MEDS: Famotidine/PF 20 mg/2ml Vial SLOW IVP SCH (07:48)
[2023-07-06] MEDS: NOREPINEPHRINE 8 MG/250 ML-D5W 250 ML IVPB SCH ×4 (07:48→22:31)
[2023-07-06] MEDS: Heparin 5,000 UNITS/ML VIAL SC SCH ×3 (07:48→20:52)
[2023-07-06] MEDS: Lactated Ringer's 1,000 ML IV SCH ×3 (07:50→16:00)
[2023-07-06] MEDS: Clopidogrel Bisulfate 75 MG TAB PO SCH (07:52)
[2023-07-06 08:33] LABS: Actual Bicarbonate (HCO3v) 15.8 mEq/L (22-28); Base Excess -8.7 mEq/L (-2.0 to +3.0); Calcium, Ionized (venous) 1.03 mmol/L (1.16-1.32); Chloride (VBG) 120 mmol/L (98-106); Hematocrit-VBG 40 % (42.0-52.0); Hemoglobin (Hb) 13.6 g/dL (12.6-17.4); Potassium (VBG) 3.63 mmol/L (3.70-5.30); pH (venous) 7.332 (7.32-7.43)
[2023-07-06 08:35] LABS: Sodium 151.6 mmol/L (133-146)
[2023-07-06] MEDS ORDERED: Amiodarone 150 MG in Dextrose 5% in Water 100 ML IVPB SCH (09:00)
[2023-07-06] MEDS ORDERED: VANCOMYCIN 1.25 GM/250 ML BAG 1.25 GM in Premix Bag 1 BAG IVPB SCH (09:00)
[2023-07-06] MEDS: Vasopressin 20 UNITS in Sodium Chloride 0.9% 50 ML IV SCH ×3 (09:15→23:58)
[2023-07-06] MEDS: Amiodarone 450 MG in Dextrose 5% in Water 250 ML IVPB SCH ×2 (09:27→15:46)
[2023-07-06 09:48] LABS: Anion Gap 17 mmol/L (10-20); Calc. Creatinine Clearance 15 mL/min (70-130); Calcium 7.6 mg/dL (7.8-10.44); Carbon Dioxide 17 mmol/L (23-31); Chloride 119 mmol/L (98-107); Estimated GFR 19; Potassium 3.3 mmol/L (3.5-5.1); Sodium 150 mmol/L (136-145)
[2023-07-06 09:49] LABS: Lactic Acid 5.6 mmol/L (0.5-2.2)
[2023-07-06] MEDS ORDERED: Hydrocortisone Sod Succ/PF 100 mg/2 ml Vial IVP SCH (10:00)
[2023-07-06 10:01] LABS: BUN (Urea Nitrogen) 130 mg/dL (8.4-25.7)
[2023-07-06 10:04] LABS: Glucose 413 mg/dL (83-110)
[2023-07-06] MEDS: Lorazepam 2 MG/ML VIAL SLOW IVP PRN (11:15)
[2023-07-06 13:27] LABS: Anion Gap 19 mmol/L (10-20); Calc. Creatinine Clearance 14 mL/min (70-130); Calcium 7.5 mg/dL (7.8-10.44); Carbon Dioxide 15 mmol/L (23-31); Chloride 116 mmol/L (98-107); Estimated GFR 19; Potassium 3.8 mmol/L (3.5-5.1); Sodium 146 mmol/L (136-145)
[2023-07-06 13:29] LABS: Lactic Acid 7.7 mmol/L (0.5-2.2)
[2023-07-06 13:30] LABS: Glucose 452 mg/dL (83-110)
[2023-07-06] MEDS: Cefepime 1 GM in Sodium Chloride 0.9% 100 ML IVPB SCH (13:35)
[2023-07-06 13:41] LABS: BUN (Urea Nitrogen) 127 mg/dL (8.4-25.7)
[2023-07-06] MEDS: Hydrocortisone Sod Succ/PF 100 mg/2 ml Vial IVP SCH ×2 (15:47→22:28)
[2023-07-06] MEDS: HUMULIN R 100 UNITS in Sodium Chloride 0.9% 100 ML IVPB SCH ×2 (17:05→21:46)
[2023-07-06] MEDS: Dextrose 5%-Lactated Ringers 1,000 ML IV SCH ×2 (17:06→22:30)
[2023-07-06] MEDS ORDERED: HUMULIN R 100 UNITS in Sodium Chloride 0.9% 100 ML IVPB SCH (23:30)
[2023-07-07] MEDS: Lorazepam 2 MG/ML VIAL SLOW IVP PRN ×2 (01:50→08:10)
[2023-07-07] MEDS: Cefepime 1 GM in Sodium Chloride 0.9% 100 ML IVPB SCH (01:54)
[2023-07-07 02:21] LABS: Vancomycin, Random 9.8 ug/mL (See Comment)
[2023-07-07] MEDS ORDERED: Vancomycin HCl 750 MG in Sodium Chloride 0.9% 250 ML 250 ML IVPB SCH (03:00)
[2023-07-07 04:25] LABS: Mean Corpuscular HGB CONC 33.9 g/dL (32.0-36.0); Mean Corpuscular Hemoglobin 30.6 pg (27.0-31.0); Mean Platelet Volume 13.2 fL (7.4-10.4); Platelet Count 130 10x3/uL (130-400); RBC Distribution Width 15.2 % (11.5-14.5); Red Blood Cell (RBC) Count 3.89 mill/uL (4.70-6.10); White Blood Cell (WBC) Count 17.7 10x3/uL (4.8-10.8)
[2023-07-07 04:30] LABS: Delete Auto Diff?? YES; Hematocrit 35.1 % (42.0-52.0); Hemoglobin 11.9 g/dL (14.0-18.0); Manual Diff?? YES; Mean Corpuscular Volume 90.2 fl (78.0-98.0)
[2023-07-07] MEDS: metroNIDAZOLE 500 MG in Premix Bag 1 BAG IVPB SCH ×3 (04:34→21:06)
[2023-07-07] MEDS: Hydrocortisone Sod Succ/PF 100 mg/2 ml Vial IVP SCH ×4 (04:34→21:07)
[2023-07-07 04:50] LABS: Anion Gap 15 mmol/L (10-20); BUN (Urea Nitrogen) 101 mg/dL (8.4-25.7); Calc. Creatinine Clearance 20 mL/min (70-130); Calcium 7.7 mg/dL (7.8-10.44); Carbon Dioxide 21 mmol/L (23-31); Chloride 111 mmol/L (98-107); Estimated GFR 29; Glucose 151 mg/dL (83-110); Lipase 13 U/L (8-78); Potassium 2.9 mmol/L (3.5-5.1); Sodium 144 mmol/L (136-145)
[2023-07-07 04:52] LABS: Band 44 % (5-11); CellaVision Operator ID LAB.CLH1; Large Platelets 2.6 % (0-5); Lymphocytes 7 % (21-51); Metamyelocyte 11 % (0-0); Monocytes 15 % (0-10); Myelocyte 2 % (0-0); Neutrophil 19 % (42-75); Platelet Adequacy Comment Platelets Normal; Polychromasia SLIGHT = 2-3 cells HPF (0-2); Reactive Lymphocytes 2 % (0-10); Total Cell Count 114
[2023-07-07] MEDS: Dextrose 5%-Lactated Ringers 1,000 ML IV SCH ×2 (05:41→12:22)
[2023-07-07] MEDS: Potassium Chloride 20 MEQ in Premix Bag 1 BAG IVPB SCH ×4 (06:26→09:59)
[2023-07-07] MEDS: Amiodarone 450 MG in Dextrose 5% in Water 250 ML IVPB SCH (07:41)
[2023-07-07] MEDS: Clopidogrel Bisulfate 75 MG TAB PO SCH (08:10)
[2023-07-07] MEDS: Famotidine/PF 20 mg/2ml Vial SLOW IVP SCH (08:10)
[2023-07-07] MEDS: Heparin 5,000 UNITS/ML VIAL SC SCH ×3 (08:10→21:07)
[2023-07-07] MEDS ORDERED: Electrolyte Replacement Protocol 1 EACH FS SCH (08:15)
[2023-07-07] MEDS ORDERED: Electrolyte Replacement Protocol FS PRN (08:30)
[2023-07-07 08:34] LABS: Magnesium 1.5 mg/dL (1.6-2.6)
[2023-07-07] MEDS: Vasopressin 20 UNITS in Sodium Chloride 0.9% 50 ML IV SCH ×2 (08:59→18:51)
[2023-07-07] MEDS: NOREPINEPHRINE 8 MG/250 ML-D5W 250 ML IVPB SCH (09:54)
[2023-07-07] MEDS ORDERED: Magnesium 2 GM/50 ML(in water) 2 GM in Premix Bag 1 BAG IVPB SCH ×2 (10:00→11:00)
[2023-07-07] MEDS ORDERED: Fentanyl CADD 100 ML ONE (11:10)
[2023-07-07] MEDS: Fentanyl CADD 100 ML IV SCH (11:11)
[2023-07-07] MEDS ORDERED: Lactated Ringer's 500 ML IV SCH (11:15)
[2023-07-07] MEDS ORDERED: HumaLOG 300 UNITS/3 ML VIAL SC PRN (11:15)
[2023-07-07 11:31] LABS: Phosphorus 1.7 mg/dL (2.3-4.7)
[2023-07-07] MEDS ORDERED: Potassium Phosphate 15 MMOL in Sodium Chloride 0.9% 100 ML IVPB SCH (12:00)
[2023-07-07] MEDS ORDERED: PROPOFOL 20 ML ONE (12:06)
[2023-07-08] MEDS: HumaLOG 300 UNITS/3 ML VIAL SC PRN ×5 (00:11→21:13)
[2023-07-08] MEDS: Cefepime 1 GM in Sodium Chloride 0.9% 100 ML IVPB SCH (02:01)
[2023-07-08 02:04] LABS: Hematocrit 35.7 % (42.0-52.0); Hemoglobin 11.9 g/dL (14.0-18.0); Mean Corpuscular HGB CONC 33.3 g/dL (32.0-36.0); Mean Corpuscular Hemoglobin 30.7 pg (27.0-31.0); Mean Corpuscular Volume 92.2 fl (78.0-98.0); Platelet Count 129 10x3/uL (130-400); RBC Distribution Width 15.9 % (11.5-14.5); Red Blood Cell (RBC) Count 3.87 mill/uL (4.70-6.10); White Blood Cell (WBC) Count 20.9 10x3/uL (4.8-10.8)
[2023-07-08 02:13] LABS: Delete Auto Diff?? YES; Manual Diff?? YES
[2023-07-08 02:40] LABS: Band 45 % (5-11); CellaVision Operator ID LAB.CLH1; Lymphocytes 2 % (21-51); Metamyelocyte 2 % (0-0); Monocytes 4 % (0-10); Neutrophil 48 % (42-75); Platelet Adequacy Comment Platelets Normal; Polychromasia SLIGHT = 2-3 cells HPF (0-2); Total Cell Count 103; Vancomycin, Random 12.4 ug/mL (See Comment)
[2023-07-08 02:57] LABS: Anion Gap 16 mmol/L (10-20); BUN (Urea Nitrogen) 81 mg/dL (8.4-25.7); Calc. Creatinine Clearance 26 mL/min (70-130); Calcium 7.6 mg/dL (7.8-10.44); Carbon Dioxide 16 mmol/L (23-31); Chloride 110 mmol/L (98-107); Estimated GFR 34; Glucose 360 mg/dL (83-110); Potassium 4.5 mmol/L (3.5-5.1); Sodium 137 mmol/L (136-145)
[2023-07-08] MEDS ORDERED: Vancomycin HCl 500 MG in Sodium Chloride 0.9% 100 ML IV SCH (03:15)
[2023-07-08] MEDS: Dextrose 5%-Lactated Ringers 1,000 ML IV SCH (03:37)
[2023-07-08] MEDS: Vasopressin 20 UNITS in Sodium Chloride 0.9% 50 ML IV SCH ×2 (03:43→16:23)
[2023-07-08] MEDS: metroNIDAZOLE 500 MG in Premix Bag 1 BAG IVPB SCH ×3 (04:59→20:41)
[2023-07-08] MEDS: NOREPINEPHRINE 8 MG/250 ML-D5W 250 ML IVPB SCH (05:08)
[2023-07-08] MEDS: Hydrocortisone Sod Succ/PF 100 mg/2 ml Vial IVP SCH ×4 (05:22→21:15)
[2023-07-08 06:58] LABS: Actual Bicarbonate (HCO3a) 17.7 mEq/L (22-28); Base Excess (BEa) -4.2 mEq/L (-2.0 to +3.0); Calcium, Ionized (arterial) 1.06 mmol/L (1.12-1.30); Carboxyhemoglobin (COHb) 0.3 gm% (0.0-3.0); Hematocrit-ABG 37 % (42.0-52.0); Hemoglobin (Hb) 12.6 g/dL (14.0-18.0); O2 Tension (PaO2), arterial 108.8 mmHg (> 60.0); Potassium - ABG Lab 4.44 mmol/L (3.70-5.30); pH, Arterial 7.478 (7.35-7.45)
[2023-07-08 07:00] LABS: CO2 Tension 24.4 mmHg (35.0-45.0); Puncture Site RRA
[2023-07-08] MEDS: Famotidine/PF 20 mg/2ml Vial SLOW IVP SCH (10:00)
[2023-07-08] MEDS: Clopidogrel Bisulfate 75 MG TAB PO SCH (10:00)
[2023-07-08] MEDS: Heparin 5,000 UNITS/ML VIAL SC SCH ×3 (10:00→21:14)
[2023-07-08] MEDS: Lorazepam 2 MG/ML VIAL SLOW IVP PRN (10:28)
[2023-07-08] MEDS ORDERED: PROPOFOL 200 MG/20 ML VIAL IV SCH (15:15)
[2023-07-08] MEDS ORDERED: Fentanyl CADD 100 ML ONE (18:46)
[2023-07-08] MEDS: Fentanyl CADD 100 ML IV SCH (18:48)
[2023-07-09] MEDS: Cefepime 1 GM in Sodium Chloride 0.9% 100 ML IVPB SCH (02:33)
[2023-07-09] MEDS: Vasopressin 20 UNITS in Sodium Chloride 0.9% 50 ML IV SCH (02:35)
[2023-07-09] MEDS: metroNIDAZOLE 500 MG in Premix Bag 1 BAG IVPB SCH ×2 (04:16→11:35)
[2023-07-09] MEDS: HumaLOG 300 UNITS/3 ML VIAL SC PRN ×2 (04:16→09:35)
[2023-07-09] MEDS: Hydrocortisone Sod Succ/PF 100 mg/2 ml Vial IVP SCH (04:18)
[2023-07-09 04:29] LABS: Hematocrit 34.3 % (42.0-52.0); Hemoglobin 11.3 g/dL (14.0-18.0); Mean Corpuscular HGB CONC 32.9 g/dL (32.0-36.0); Mean Corpuscular Hemoglobin 30.3 pg (27.0-31.0); Mean Platelet Volume 13.7 fL (7.4-10.4); Platelet Count 105 10x3/uL (130-400); RBC Distribution Width 16.2 % (11.5-14.5); Red Blood Cell (RBC) Count 3.73 mill/uL (4.70-6.10); White Blood Cell (WBC) Count 18.7 10x3/uL (4.8-10.8)
[2023-07-09 04:30] LABS: Delete Auto Diff?? YES; Manual Diff?? YES
[2023-07-09 05:57] LABS: Anion Gap 13 mmol/L (10-20); BUN (Urea Nitrogen) 72 mg/dL (8.4-25.7); Calc. Creatinine Clearance 30 mL/min (70-130); Carbon Dioxide 22 mmol/L (23-31); Chloride 113 mmol/L (98-107); Estimated GFR 38; Glucose 287 mg/dL (83-110); Magnesium 2.1 mg/dL (1.6-2.6); Potassium 3.9 mmol/L (3.5-5.1); Sodium 144 mmol/L (136-145)
[2023-07-09 06:32] LABS: Vancomycin, Random 12.4 ug/mL (See Comment)
[2023-07-09] MEDS ORDERED: Vancomycin HCl 750 MG in Sodium Chloride 0.9% 250 ML 250 ML IVPB SCH (07:30)
[2023-07-09 07:37] LABS: Base Excess (BEa) -1.7 mEq/L (-2.0 to +3.0); CO2 Tension 29.6 mmHg (35.0-45.0); Calcium, Ionized (arterial) 1.12 mmol/L (1.12-1.30); Hematocrit-ABG 36 % (42.0-52.0); Hemoglobin (Hb) 12.4 g/dL (14.0-18.0); O2 Tension (PaO2), arterial 112.9 mmHg (> 60.0); Potassium - ABG Lab 3.56 mmol/L (3.70-5.30); pH, Arterial 7.468 (7.35-7.45)
[2023-07-09 07:39] VITALS: BP 146/73
[2023-07-09 07:40] LABS: Puncture Site RRA
[2023-07-09 07:53] LABS: Band 26 % (5-11); Burr Cells MODERATE= 6-15 cells HPF (0-1); CellaVision Operator ID LAB.GE; Dohle Bodies SLIGHT; Lymphocytes 1 % (21-51); Metamyelocyte 1 % (0-0); Neutrophil 71 % (42-75); Platelet Adequacy Comment Platelets Decreased; Polychromasia SLIGHT = 2-3 cells HPF (0-2); Reactive Lymphocytes 1 % (0-10); Total Cell Count 102
[2023-07-09] MEDS ORDERED: Hydrocortisone Sod Succ/PF 100 mg/2 ml Vial IVP SCH (09:00)
[2023-07-09] MEDS ORDERED: Insulin NPH Human Isophane 100 UNITS/ML (10 ML VIAL) SC SCH (09:00)
[2023-07-09 09:02] VITALS: BMI 25.4
[2023-07-09] MEDS: Heparin 5,000 UNITS/ML VIAL SC SCH ×2 (09:27→15:11)
[2023-07-09] MEDS: Clopidogrel Bisulfate 75 MG TAB PO SCH (09:28)
[2023-07-09] MEDS: Famotidine/PF 20 mg/2ml Vial SLOW IVP SCH (09:28)
[2023-07-09] MEDS ORDERED: DC Sedation Protocol FS ONE (10:26)
[2023-07-09] MEDS ORDERED: GLYCOPYRROLATE/PF 0.2 MG/ML VIAL SLOW IVP SCH (11:00)
[2023-07-09] MEDS ORDERED: Scopolamine 1.5 mg/72 hour Patch TD SCH (11:00)
[2023-07-09 16:16] VITALS: TEMP 98.1
== END 2023-07-09 18:36 | disposition hospice, home (50) | DRG 871 ==
LOC: ERS → CCU 07-06 02:46
PROVIDERS: ADMIT Internal Medicine Nephrology; ATTEND Internal Medicine
PROC: 06HY33Z Insertion of Infusion Device into Lower Vein, Percutaneous Approach (ICD-10-PCS; principal; 2023-07-06)
PROC: 3E03329 Introduction of Other Anti-infective into Peripheral Vein, Percutaneous Approach (ICD-10-PCS; 2023-07-06)
PROC: 0DH67UZ Insertion of Feeding Device into Stomach, Via Natural or Artificial Opening (ICD-10-PCS; 2023-07-06)
PROC: 0BH17EZ Insertion of Endotracheal Airway into Trachea, Via Natural or Artificial Opening (ICD-10-PCS; 2023-07-06)
PROC: 5A1945Z Respiratory Ventilation, 24-96 Consecutive Hours (ICD-10-PCS; 2023-07-06)
PROC: 3E043XZ Introduction of Vasopressor into Central Vein, Percutaneous Approach (ICD-10-PCS; 2023-07-06)
PROC: 30233J1 Transfusion of Nonautologous Serum Albumin into Peripheral Vein, Percutaneous Approach (ICD-10-PCS; 2023-07-06)
PROC: 4A133R1 Monitoring of Arterial Saturation, Peripheral, Percutaneous Approach (ICD-10-PCS; 2023-07-06)
PROC: 0B9F8ZZ Drainage of Right Lower Lung Lobe, Via Natural or Artificial Opening Endoscopic (ICD-10-PCS; 2023-07-07)
PROC: 0B958ZZ Drainage of Right Middle Lobe Bronchus, Via Natural or Artificial Opening Endoscopic (ICD-10-PCS; 2023-07-07)
DX: A41.9 Sepsis, unspecified organism (principal); G93.41 Metabolic encephalopathy; J69.0 Pneumonitis due to inhalation of food and vomit; J96.01 Acute respiratory failure with hypoxia; R65.21 Severe sepsis with septic shock; J18.9 Pneumonia, unspecified organism; I69.352 Hemiplegia and hemiparesis following cerebral infarction affecting left dominant side; E87.0 Hyperosmolality and hypernatremia; N17.9 Acute kidney failure, unspecified; E11.22 Type 2 diabetes mellitus with diabetic chronic kidney disease; E78.5 Hyperlipidemia, unspecified; F17.210 Nicotine dependence, cigarettes, uncomplicated; I12.9 Hypertensive chronic kidney disease with stage 1 through stage 4 chronic kidney disease, or unspecified chronic kidney disease; N18.30 Chronic kidney disease, stage 3 unspecified; Z66 Do not resuscitate; E87.6 Hypokalemia; E86.0 Dehydration; E83.42 Hypomagnesemia; E83.39 Other disorders of phosphorus metabolism; Z93.1 Gastrostomy status; Z79.899 Other long term (current) drug therapy; I69.391 Dysphagia following cerebral infarction; I69.322 Dysarthria following cerebral infarction; Z82.49 Family history of ischemic heart disease and other diseases of the circulatory system; Z83.3 Family history of diabetes mellitus; Z90.49 Acquired absence of other specified parts of digestive tract
CPT/HCPCS: 31500; 36415; 36416; 36556; 36600; 51702; 70450; 71045; 76770; 80048; 80053; 80202; 81001; 82010; 82550; 82805; 83036; 83605; 83690; 83735; 83880; 83930; 84100; 84145; 84443; 84484; 85025; 85610; 85730; 87040; 87070; 87077; 87086; 87186; 87205; 89220; 93005; 93010; 94002; 94003; 94760; 96365; 96366; 96367; 96368; 96375; 99292; J0171; J0282; J0692; J1644; J1720; J1815; J2060; J2704; J3010; J3370; J3370-JW; J3475; J3480; J3490; J7050; J7070; J7120; P9047; S0028